=== PATIENT | male | born 1950 | race Caucasian/White ===

== ENCOUNTER 2017-05-25 10:48 | Inpatient (IN) | payer OTHER, MEDICARE ==
[2017-05-25] VITALS (10 sets, daily range): BP systolic 95–114; BP diastolic 57–68; PULSE 87–124; RESP 25–28; TEMP 97.8–99.3; O2SAT 92–99
[~2017-05-25] VITALS: Ht 180.3 cm; Wt 113.8 kg
[2017-05-25] MEDS ORDERED: ONDANSETRON HCL 4 MG/2 ML VIAL ONE (10:56)
[2017-05-25] MEDS ORDERED: MORPHINE SULFATE 8 MG/ML INJ ONE (10:56)
[2017-05-25] MEDS ORDERED: DIPHTH/TETANUS/ACEL PERTUSSIS (BOOSTER) 0.5 ML VIAL/PFS IM ONE (11:07)
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
[2017-05-25 11:19] LABS: I-STAT POTASSIUM 4.4 MMOL/L (3.5-4.9)
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
[2017-05-25 11:21] LABS: AUTOMATED NEUTROPHIL # 8.9 TH/MM3 (1.8-7.7); BASOPHIL # 0.1 TH/MM3 (0-0.2); BASOPHIL % 0.5 % (0.0-2.0); EOSINOPHIL # 0.3 TH/MM3 (0-0.4); EOSINOPHIL % 2.7 % (0.0-4.0); HEMATOCRIT 40.1 % (39.0-51.0); HEMO FLAGS DIFF FINAL; LYMPH % 17.2 % (9.0-44.0); LYMPHOCYTE # 2.1 TH/MM3 (1.0-4.8); MEAN CELL VOLUME 82.4 FL (80.0-100.0); MEAN CORPUSCULAR HEMOGLOBIN 27.1 PG (27.0-34.0); MEAN CORPUSCULAR HGB CONC 32.9 % (32.0-36.0); MONO % 6.3 % (0.0-8.0); NEUT % 73.3 % (16.0-70.0); PLATELET COUNT 246 TH/MM3 (150-450); RED BLOOD COUNT 4.86 MIL/MM3 (4.50-5.90); RED CELL DISTRIBUTION WIDTH 13.6 % (11.6-17.2); WHITE BLOOD COUNT 12.2 TH/MM3 (4.0-11.0)
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
[2017-05-25 11:30] LABS: APTT (PATIENT) 21.8 SEC (24.3-30.1); PROTHROMBIN TIME - PATIENT 11.2 SEC (9.8-11.6)
[2017-05-25] MEDS ORDERED: IOHEXOL 350 MG/ML 10 ML VIAL (for RAD DIAG) IVCONTRAST ONE (11:50)
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
[2017-05-25] MEDS ORDERED: SODIUM CHLORIDE 0.9% FLUSH 10 ML FLUSH IV FLUSH PRN ×2 (12:15→13:30)
[2017-05-25] MEDS ORDERED: Post-op Orders (for Pharmacy) MISC XX ONE (12:15)
[2017-05-25] MEDS ORDERED: ONDANSETRON HCL 4 MG/2 ML VIAL IV PUSH PRN (12:15)
[2017-05-25] MEDS ORDERED: NALOXONE HCL 0.4 MG/ML AMP IV PUSH PRN (12:15)
[2017-05-25] MEDS: SODIUM CHLOR 0.9% 1000 ML INJ 1,000 ML IV SCH ×2 (12:30→20:53)
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
[2017-05-25] MEDS: HYDROmorphone HCL PF 1 MG/ML VIAL IV PUSH PRN ×2 (13:23→18:06)
[2017-05-25] MEDS ORDERED: IOHEXOL 350 MG/ML 10 ML VIAL (for RAD DIAG) OTHER ONE (13:23)
[2017-05-25 13:30] LABS: BLOOD GAS BASE EXCESS -10.8 mmol/L (-2-2); BLOOD GAS CARBOXYHEMOGLOBIN 0.7 % (0-4); BLOOD GAS HCO3 14 mmol/L (22-26); BLOOD GAS O2 HGB SATURATION 97 % (90-100); BLOOD GAS OXYGEN CONTENT 17.8 Vol % (12.0-20.0); BLOOD GAS PCO2 31 mmHg (38-42); BLOOD GAS PO2 176 mmHg (61-120); BLOOD GAS TOTAL HGB 12.8 G/DL (12.0-16.0); CRITICAL VALUE YES; TEMP CORR TO 98.6
[2017-05-25] MEDS ORDERED: BISACODYL 10 MG SUPP RECTAL PRN (13:30)
[2017-05-25] MEDS ORDERED: CHLORHEXIDINE GLUCONATE 2 % 1 PACK (2 CLOTHS) TOP PRN (13:30)
[2017-05-25] MEDS ORDERED: SENNOSIDES 8.6 MG TAB PO PRN (13:30)
[2017-05-25] MEDS ORDERED: LACTULOSE SYRUP 20 GM/30 ML CUP PO PRN (13:30)
[2017-05-25] MEDS ORDERED: MISCELLANEOUS NURSING INFORMATION XX SCH (13:30)
[2017-05-25] MEDS ORDERED: MAGNESIUM HYDROXIDE SUSP 30 ML CUP PO PRN (13:30)
[2017-05-25 13:31] LABS: DRAW SITE RT RADIAL; FIO2 100 %; LITER FLOW 15 L/M; NUMBER OF ARTERIAL PUNCTURES 1; STAT NO; ULNAR PULSE PRESENT
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
[2017-05-25] MEDS ORDERED: NOREPINEPHRINE-DEXTROSE DRIP 250 ML IV ONE (14:18)
[2017-05-25] MEDS ORDERED: TERBUTALINE INJ 1 MG/ML AMP SQ PRN ×3 (14:30→15:15)
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
--- NOTE | 2017-05-25 15:02 | RADRPT ---
EXAM DATE/TIME: 05/25/2017 14:28 [facility] COMPARISON: CHEST SINGLE AP, May 25, 2017, 10:40. INDICATIONS : Evaluate for central line placement. MEDICAL HISTORY : None. SURGICAL HISTORY : None. ENCOUNTER: Subsequent ACUITY: 1 day PAIN SCORE: Non-responsive. LOCATION: chest FINDINGS: A single portable frontal view of the chest shows interval placement of a left subclavian dialysis ca theter. The tip is at the confluence of the innominate vein and brachycephalic vein. No pneumothorax. Heart is enlarged. Linear atelectasis within the left lung base. No effusions or infiltrates. CONCLUSION: Left subclavian dialysis catheter without pneumothorax. Jung Bhatia Jr., MD on May 25, 2017 at 15:00 Board Certified Radiologist. This report was verified electronically.
[2017-05-25 15:07] LABS: HEMATOCRIT 35.8 % (39.0-51.0); MEAN CELL VOLUME 85.3 FL (80.0-100.0); MEAN CORPUSCULAR HEMOGLOBIN 27.4 PG (27.0-34.0); MEAN CORPUSCULAR HGB CONC 32.1 % (32.0-36.0); PLATELET COUNT 198 TH/MM3 (150-450); RED BLOOD COUNT 4.19 MIL/MM3 (4.50-5.90); RED CELL DISTRIBUTION WIDTH 14.2 % (11.6-17.2); REVIEW FLAG FINAL; WHITE BLOOD COUNT 21.2 TH/MM3 (4.0-11.0)
[2017-05-25] MEDS ORDERED: LIDOCAINE HCL 1% 50 ML VIAL ONE (15:07)
[2017-05-25] MEDS ORDERED: NOREPINEPHRINE 16 MG/D5W 250 ML IV PRN ×2 (15:15)
[2017-05-25] MEDS ORDERED: PHENYLEPHRINE HCL 160 MG/D5W 484 ML ADMIX IV PRN ×2 (15:15)
[2017-05-25] MEDS ORDERED: EPINEPHrine 8 MG/D5W 250 ML IV PRN ×2 (15:15)
[2017-05-25] MEDS ORDERED: PHENYLEPHRINE INJ 40 MG in DEXTROSE 5% IN WATE 500 ML INJ 496 ML IV PRN ×2 (15:15)
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
[2017-05-25 15:36] LABS: BICARBONATE 20.2 MEQ/L (21.0-32.0); POTASSIUM 3.9 MEQ/L (3.5-5.1)
[2017-05-25 15:43] LABS: INTERNATIONAL NORMALIZED RATIO 1.3 RATIO
[2017-05-25] MEDS: RESP: ALBUTEROL 2.5 MG/IPRATROPIUM 0.5 MG NEB (SCH) INH ×2 (16:00→22:02)
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
[2017-05-25] MEDS: NOREPINEPHRINE INJ 4 MG in SODIUM CHLOR 0.9% 250 ML INJ 246 ML IV PRN ×3 (16:18→21:56)
[2017-05-25] MEDS ORDERED: ALBUMIN 5% INJ 500 ML IV ONE (16:30)
[2017-05-25] MEDS ORDERED: SODIUM CHLOR 0.9% 1000 ML INJ 2,000 ML IV ONE ×2 (17:00)
[2017-05-25] MEDS: ONDANSETRON HCL 4 MG/2 ML VIAL IV PUSH PRN (17:38)
[2017-05-25] MEDS: ARTIFICIAL TEARS OPTH SOLN 15 ML BTL EACH EYE SCH (18:40)
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
[2017-05-25] MEDS: DOCUSATE SODIUM 50 MG/SENNA 8.6 MG TAB PO SCH (19:57)
[2017-05-25] MEDS: oxyCODONE/ACETAMINOPHEN 5 MG/325 MG TAB PO PRN (19:58)
[2017-05-25] MEDS: ACETAMINOPHEN 1000 MG/100 ML 100 ML IV SCH (19:58)
[2017-05-25] MEDS: SODIUM CHLORIDE 0.9% FLUSH 10 ML FLUSH IV FLUSH SCH (19:59)
[2017-05-25] MEDS: METHOCARBAMOL 500 MG TAB PO SCH (20:08)
[2017-05-25 20:59] LABS: HEMATOCRIT 30.5 % (39.0-51.0); REVIEW FLAG FINAL
[2017-05-25] MEDS ORDERED: SODIUM CHLORIDE 0.9% FLUSH 10 ML FLUSH IV FLUSH SCH (21:00)
[2017-05-25] MEDS ORDERED: DOCUSATE SODIUM 100 MG CAP PO SCH (21:00)
[2017-05-25] MEDS ORDERED: FAMOTIDINE 20 MG/2 ML VIAL IV PUSH SCH (21:00)
[2017-05-25 22:51] LABS: BACTERIA, URINE RARE /hpf; BLOOD, URINE LARGE (NEG); COMMENT (UR) CULTURE INDICATED; CULTURE IF INDICATED CULTURE INDICATED; GLUCOSE,URINE NEG (NEG); GRANULAR CAST, URINE 21 /lpf; KETONE, URINE NEG (NEG); MUCUS URINE FEW /lpf (OCC); NITRITE,URINE NEG (NEG); PH, URINE 5.5 (5.0-8.5); SQUAMOUS EPITHELIAL CELL URINE 2 /hpf (0-5)
[2017-05-25 22:52] LABS: URINE COLOR LIGHT-RED (YELLW/STRAW)
[2017-05-26] VITALS (24 sets, daily range): BP systolic 105–166; BP diastolic 48–70; PULSE 96–112; RESP 16–25; TEMP 98–100.2; O2SAT 93–97
[2017-05-26] MEDS: oxyCODONE/ACETAMINOPHEN 5 MG/325 MG TAB PO PRN ×3 (00:02→16:03)
[2017-05-26] MEDS: ACETAMINOPHEN 1000 MG/100 ML 100 ML IV SCH ×2 (00:02→06:44)
[2017-05-26] MEDS: HYDROmorphone HCL PF 1 MG/ML VIAL IV PUSH PRN ×3 (00:59→10:38)
[2017-05-26] MEDS: CHLORHEXIDINE GLUCONATE 2 % 1 PACK (2 CLOTHS) TOP SCH (04:00)
[2017-05-26] MEDS: RESP: ALBUTEROL 2.5 MG/IPRATROPIUM 0.5 MG NEB (SCH) INH ×4 (04:13→21:17)
[2017-05-26] MEDS: METHOCARBAMOL 500 MG TAB PO SCH ×3 (04:21→20:16)
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
[2017-05-26 05:48] LABS: AUTOMATED NEUTROPHIL # 11.4 TH/MM3 (1.8-7.7); BASOPHIL % 0.3 % (0.0-2.0); HEMATOCRIT 25.4 % (39.0-51.0); LYMPH % 11.2 % (9.0-44.0); LYMPHOCYTE # 1.6 TH/MM3 (1.0-4.8); MEAN CELL VOLUME 83.1 FL (80.0-100.0); MEAN CORPUSCULAR HGB CONC 33.7 % (32.0-36.0); MONO % 9.9 % (0.0-8.0); NEUT % 78.6 % (16.0-70.0); PLATELET COUNT 133 TH/MM3 (150-450); RED BLOOD COUNT 3.06 MIL/MM3 (4.50-5.90); RED CELL DISTRIBUTION WIDTH 14.5 % (11.6-17.2); WHITE BLOOD COUNT 14.4 TH/MM3 (4.0-11.0)
[2017-05-26 06:07] LABS: HEMO FLAGS AUTO DIFF
[2017-05-26 06:16] LABS: BICARBONATE 16.8 MEQ/L (21.0-32.0); POTASSIUM 5.2 MEQ/L (3.5-5.1)
[2017-05-26 06:30] LABS: CALCIUM-PROTEIN CORRECTED 7.9 MG/DL (8.5-10.1)
[2017-05-26 06:44] LABS: BANDS 8 % (0-6); NEUTROPHIL # MANUAL DIFF 12.7 TH/MM3 (1.8-7.7); POLYS (SEG NEUTROPHILS) 80 % (16-70); WBC DIFF SAMPLE 100
[2017-05-26] MEDS: ONDANSETRON HCL 4 MG/2 ML VIAL IV PUSH PRN ×2 (06:44→20:17)
[2017-05-26 06:45] LABS: KERATOCYTES 1+ (NORMAL); PLATELET ESTIMATE SMEAR LOW (NORMAL); PLATELET MORPHOLOGY NORMAL (NORMAL); SCAN/DIFF FINAL DIFF MANUAL
[2017-05-26 07:00] LABS: MAGNESIUM 1.7 MG/DL (1.5-2.5)
[2017-05-26] MEDS: FAMOTIDINE 20 MG/2 ML VIAL IV PUSH SCH ×2 (09:00→20:17)
[2017-05-26] MEDS: ARTIFICIAL TEARS OPTH SOLN 15 ML BTL EACH EYE SCH ×2 (09:00→13:00)
[2017-05-26] MEDS: SODIUM CHLORIDE 0.9% FLUSH 10 ML FLUSH IV FLUSH SCH ×2 (09:00→21:00)
[2017-05-26] MEDS: DOCUSATE SODIUM 50 MG/SENNA 8.6 MG TAB PO SCH ×2 (09:00→20:17)
[2017-05-26] MEDS ORDERED: PROMETHAZINE INJ 25 MG/ML VIAL IV-CENTRAL PRN (10:15)
[2017-05-26] MEDS ORDERED: SODIUM CHLOR 0.9% 250 ML INJ 250 ML IV ONE (10:15)
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
[2017-05-26] MEDS ORDERED: MAGNESIUM SULFATE 1 GM PREMIX 100 ML IV ONE (11:00)
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
--- NOTE | 2017-05-26 14:07 | OTSOAPIP ---
[facility] REQUESTS TO HOLD PATIENT IS SCHEDULED FOR ROTO BED TOMORROW. PATIENT ALSO BEING SCHEDULED FOR OPEN REDUCTION INTERNAL FIXATION PUBIC SYMPHYSEAL DIASTASIS AND SURGICAL DECOMPRESSION AND FUSION LUMBAR SPINE. Therapist: Shaina Tellez OTR/L Signature on file
[2017-05-26] MEDS: SODIUM CHLOR 0.9% 1000 ML INJ 1,000 ML IV SCH (18:08)
[2017-05-27] VITALS (16 sets, daily range): BP systolic 138–170; BP diastolic 57–72; PULSE 81–101; RESP 18–26; TEMP 97.4–100; O2SAT 91–98
[2017-05-27] MEDS: RESP: ALBUTEROL 2.5 MG/IPRATROPIUM 0.5 MG NEB (SCH) INH ×2 (03:40→10:00)
[2017-05-27] MEDS ORDERED: ASPI81CH CHEW (03:53)
[2017-05-27] MEDS: CHLORHEXIDINE GLUCONATE 2 % 1 PACK (2 CLOTHS) TOP SCH ×2 (04:00→23:14)
[2017-05-27 05:01] LABS: AUTOMATED NEUTROPHIL # 6.5 TH/MM3 (1.8-7.7); BASOPHIL % 0.2 % (0.0-2.0); EOSINOPHIL % 0.4 % (0.0-4.0); HEMATOCRIT 24.6 % (39.0-51.0); LYMPHOCYTE # 1.2 TH/MM3 (1.0-4.8); MEAN CELL VOLUME 83.5 FL (80.0-100.0); MEAN CORPUSCULAR HEMOGLOBIN 28.9 PG (27.0-34.0); MEAN CORPUSCULAR HGB CONC 34.6 % (32.0-36.0); MONO % 8.3 % (0.0-8.0); NEUT % 77.1 % (16.0-70.0); PLATELET COUNT 83 TH/MM3 (150-450); RED BLOOD COUNT 2.95 MIL/MM3 (4.50-5.90); RED CELL DISTRIBUTION WIDTH 14.5 % (11.6-17.2); WHITE BLOOD COUNT 8.4 TH/MM3 (4.0-11.0)
[2017-05-27 05:03] LABS: HEMO FLAGS AUTO DIFF
[2017-05-27 05:32] LABS: BICARBONATE 22.3 MEQ/L (21.0-32.0); CALCIUM-PROTEIN CORRECTED 8.5 MG/DL (8.5-10.1); POTASSIUM 3.9 MEQ/L (3.5-5.1); TOTAL BILIRUBIN ADULT 0.9 MG/DL (0.2-1.0)
--- NOTE | 2017-05-27 05:43 | RADRPT ---
EXAM DATE/TIME: 05/27/2017 04:48 [facility] COMPARISON: CHEST SINGLE AP, May 26, 2017, 4:58. INDICATIONS : Short of breath. MEDICAL HISTORY : None. SURGICAL HISTORY : None. ENCOUNTER: Subsequent ACUITY: 2 days PAIN SCORE: 0/10 LOCATION: Bilateral chest FINDINGS: A single view of the chest demonstrates increase in pulmonary vascularity with some interstitial faustino a. Tiny pleural effusions. Left subclavian central line stable position. Left-sided rib fractures are noted. The cardiomediastinal contours are unremarkable. CONCLUSION: 1. Interstitial edema. 2. Tiny pleural effusions. Mikey Miles MD on May 27, 2017 at 5:40 Board Certified Radiologist. This report was verified electronically.
[2017-05-27] MEDS: MORPHINE SULFATE 2 MG/ML INJ IV PUSH PRN ×4 (05:49→16:20)
[2017-05-27] MEDS: METHOCARBAMOL 500 MG TAB PO SCH ×3 (06:00→23:14)
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
[2017-05-27 07:40] LABS: PLATELET ESTIMATE SMEAR LOW (NORMAL); PLATELET MORPHOLOGY NORMAL (NORMAL); SCAN/DIFF AUTO DIFF CONFIRMED
--- NOTE | 2017-05-27 07:55 | ECHRPT ---
Indication: MULTIPLE TRAUMA/ HX HEART DISEASE CONCLUSIONS Normal left ventricular size. Wall thickness is normal. The left ventricular systolic function is low normal with an estimated ejection fraction in the rang e of 50- 55%. There is a small pericardial effusion present. BP: / HR: Rhythm: MEASUREMENTS (Male / Female) Normal Values Technical Quality:Fair 2D ECHO LV Diastolic Diameter PLAX 4.5 cm 4.2 - 5.9 / 3.9 - 5.3 cm LV Systolic Diameter PLAX 3.5 cm IVS Diastolic Thickness 1.0 cm 0.6 - 1.0 / 0.6 - 0.9 cm LVPW Diastolic Thickness 0.8 cm 0.6 - 1.0 / 0.6 - 0.9 cm LV Relative Wall Thickness 0.4 RV Internal Dim ED PLAX 2.2 cm DOPPLER Mitral E Point Velocity 66.0 cm/s Mitral A Point Velocity 80.2 cm/s Mitral E to A Ratio 0.8 TR Peak Velocity 200.3 cm/s TR Peak Gradient 16.1 mmHg FINDINGS LEFT VENTRICLE Normal left ventricular size. Wall thickness is normal. The left ventricular systolic function is low normal with an estimated ejection fraction in the rang e of 50- 55%. RIGHT VENTRICLE Normal right ventricular size and systolic function. LEFT ATRIUM The left atrial size is normal. RIGHT ATRIUM The right atrial size is normal. ATRIAL SEPTUM Normal atrial septal thickness without atrial level shunting by limited color doppler interrogation. AORTA The aortic root and proximal ascending aorta are normal in size on limited imaging. MITRAL VALVE Structurally normal mitral valve. No mitral valve stenosis or regurgitation. AORTIC VALVE Trileaflet aortic valve. No aortic valve stenosis or regurgitation. TRICUSPID VALVE The tricuspid valve is not well visualized. PULMONARY VALVE The pulmonary valve is not well visualized. VESSELS The inferior vena cava is normal in size. PERICARDIUM There is a small pericardial effusion present. Db Marin MD (Electronically Signed) Final Date:27 May 2017 07:54
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
[2017-05-27] MEDS: SODIUM CHLORIDE 0.9% FLUSH 10 ML FLUSH IV FLUSH SCH ×2 (09:00→20:16)
[2017-05-27] MEDS: POLYETHYLENE GLYCOL 17 GM PKG PO SCH (09:00)
[2017-05-27] MEDS: LACTULOSE SYRUP 20 GM/30 ML CUP PO SCH (09:00)
[2017-05-27] MEDS: oxyCODONE/ACETAMINOPHEN 5 MG/325 MG TAB PO PRN (09:38)
[2017-05-27] MEDS: ONDANSETRON HCL 4 MG/2 ML VIAL IV PUSH PRN (09:39)
[2017-05-27] MEDS: METOPROLOL TARTRATE 5 MG/5 ML VIAL IV PUSH SCH ×3 (10:19→23:14)
[2017-05-27] MEDS: DOCUSATE SODIUM 50 MG/SENNA 8.6 MG TAB PO SCH ×2 (10:20→23:13)
[2017-05-27] MEDS: FAMOTIDINE 20 MG TAB PO SCH ×2 (10:20→23:13)
[2017-05-27] MEDS: LISINOPRIL 20 MG TAB PO SCH (10:20)
[2017-05-27] MEDS ORDERED: fentaNYL 50 MCG/HR PATCH T-DERMAL SCH (11:00)
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
[2017-05-27] MEDS: SODIUM CHLOR 0.9% 1000 ML INJ 1,000 ML IV SCH (16:20)
[2017-05-28] VITALS (9 sets, daily range): BP systolic 115–132; BP diastolic 53–55; PULSE 80–96; RESP 16–27; TEMP 98.4–99.9; O2SAT 95–100
[2017-05-28] MEDS: METOPROLOL TARTRATE 5 MG/5 ML VIAL IV PUSH SCH ×4 (03:16→20:35)
[2017-05-28] MEDS: METHOCARBAMOL 500 MG TAB PO SCH ×3 (03:16→20:49)
[2017-05-28] MEDS: MORPHINE SULFATE 2 MG/ML INJ IV PUSH PRN (03:17)
[2017-05-28] MEDS: SODIUM CHLOR 0.9% 1000 ML INJ 1,000 ML IV SCH ×3 (03:19→18:42)
[2017-05-28] MEDS: RESP: ALBUTEROL 2.5 MG/IPRATROPIUM 0.5 MG NEB (SCH) INH ×3 (03:51→21:05)
[2017-05-28 05:50] LABS: AUTOMATED NEUTROPHIL # 6.5 TH/MM3 (1.8-7.7); BASOPHIL % 0.3 % (0.0-2.0); EOSINOPHIL # 0.1 TH/MM3 (0-0.4); EOSINOPHIL % 1.4 % (0.0-4.0); HEMATOCRIT 23.1 % (39.0-51.0); LYMPHOCYTE # 1.1 TH/MM3 (1.0-4.8); MEAN CORPUSCULAR HEMOGLOBIN 29.2 PG (27.0-34.0); MEAN CORPUSCULAR HGB CONC 34.8 % (32.0-36.0); MONO % 9.2 % (0.0-8.0); NEUT % 76.1 % (16.0-70.0); PLATELET COUNT 83 TH/MM3 (150-450); RED BLOOD COUNT 2.75 MIL/MM3 (4.50-5.90); RED CELL DISTRIBUTION WIDTH 14.8 % (11.6-17.2); WHITE BLOOD COUNT 8.5 TH/MM3 (4.0-11.0)
[2017-05-28 05:54] LABS: HEMO FLAGS AUTO DIFF
[2017-05-28 06:05] LABS: BICARBONATE 24.7 MEQ/L (21.0-32.0); CALCIUM-PROTEIN CORRECTED 8.2 MG/DL (8.5-10.1); POTASSIUM 3.9 MEQ/L (3.5-5.1); TOTAL BILIRUBIN ADULT 1.2 MG/DL (0.2-1.0)
--- NOTE | 2017-05-28 06:40 | RADRPT ---
EXAM DATE/TIME: 05/28/2017 06:19 [facility] COMPARISON: CHEST SINGLE AP, May 27, 2017, 4:48. INDICATIONS : Short of breath MEDICAL HISTORY : None. SURGICAL HISTORY : None. ENCOUNTER: Subsequent ACUITY: 3 days PAIN SCORE: Non-responsive. LOCATION: Bilateral chest FINDINGS: A single view of the chest demonstrates diminished lung volumes. Cardiomegaly with increased pulmonar y vascularity. Tiny pleural effusions. Osseous structures are intact. CONCLUSION: 1. Cardiomegaly with increased pulmonary vascularity. 2. Tiny pleural effusions. Mikey Miles MD on May 28, 2017 at 6:38 Board Certified Radiologist. This report was verified electronically.
[2017-05-28] MEDS ORDERED: GELFOAM SIZE 100 ONE (08:20)
[2017-05-28] MEDS ORDERED: THROMBIN (TOPICAL) 5,000 UNIT VIAL ONE ×2 (08:20→14:42)
[2017-05-28] MEDS ORDERED: LIDOCAINE 2%/EPINEPHrine PF 1:200,000 20ML SDV ONE (08:21)
[2017-05-28] MEDS ORDERED: GENTAMICIN SULFATE 80 MG/2 ML VIAL ONE ×2 (08:21→08:36)
[2017-05-28] MEDS ORDERED: ceFAZolin 2 GM PREMIX 50 ML ONE (08:26)
[2017-05-28] MEDS ORDERED: HEPARIN SODIUM - SQ 10,000 UNITS/ML VIAL ONE (08:26)
[2017-05-28] MEDS ORDERED: VANCOMYCIN HCL 1000 MG VIAL ONE ×2 (08:26→09:17)
[2017-05-28 08:30] LABS: BANDS 16 % (0-6); NEUTROPHIL # MANUAL DIFF 6.9 TH/MM3 (1.8-7.7); POLYS (SEG NEUTROPHILS) 65 % (16-70); WBC DIFF SAMPLE 100
[2017-05-28] MEDS ORDERED: SODIUM CHLORIDE 0.9% IV SCH (08:30)
[2017-05-28] MEDS ORDERED: TRANEXAMIC ACID IV SCH (08:30)
[2017-05-28 08:36] LABS: PLATELET ESTIMATE SMEAR LOW (NORMAL); PLATELET MORPHOLOGY NORMAL (NORMAL); SCAN/DIFF FINAL DIFF MANUAL
[2017-05-28] MEDS ORDERED: NOREPINEPHRINE 4 MG/4 ML AMP ONE (08:49)
[2017-05-28] MEDS ORDERED: KETAMINE HCL 500 MG/5 ML VIAL ONE (08:52)
[2017-05-28] MEDS ORDERED: fentaNYL CITRATE 1000 MCG/20 ML VIAL ONE (08:52)
[2017-05-28] MEDS: POLYETHYLENE GLYCOL 17 GM PKG PO SCH (09:00)
[2017-05-28] MEDS: LISINOPRIL 20 MG TAB PO SCH (09:00)
[2017-05-28] MEDS: DOCUSATE SODIUM 50 MG/SENNA 8.6 MG TAB PO SCH ×2 (09:00→20:48)
[2017-05-28] MEDS: FAMOTIDINE 20 MG TAB PO SCH ×2 (09:00→20:48)
[2017-05-28] MEDS: LACTULOSE SYRUP 20 GM/30 ML CUP PO SCH (09:00)
[2017-05-28] MEDS ORDERED: METOPROLOL TARTRATE 25 MG TAB PO PRN (09:30)
[2017-05-28] MEDS ORDERED: INSULIN HUMAN REGULAR 1,000 UNITS/10 ML VIAL SQ PRN (09:30)
[2017-05-28] MEDS ORDERED: POVIDONE IODINE 5% (ANTISEPSIS KIT) 4 APPLICATIONS EACH NARE PRN (09:30)
[2017-05-28] MEDS ORDERED: SODIUM CHLORID 0.9% 500 ML IV PRN (09:30)
[2017-05-28] MEDS ORDERED: CHLORHEXIDINE GLUCONATE 2 % 1 PACK (2 CLOTHS) TOPICAL PRN (09:30)
[2017-05-28] MEDS ORDERED: LACTATED RINGER'S 1000 ML IV PRN (09:30)
[2017-05-28] MEDS ORDERED: ARTIFICIAL TEARS OPTH OINT 3.5 APPLIC/3.5 GM TUBO ONE (09:39)
[2017-05-28] MEDS ORDERED: PROPOFOL 500 MG/50 ML INJ 100 ML ONE (09:39)
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
--- NOTE | 2017-05-28 10:58 | RADRPT ---
EXAM DATE/TIME: 05/28/2017 10:02 [facility] COMPARISON: No previous studies available for comparison. INDICATIONS : Post-op ORIF pubic symphisis. MEDICAL HISTORY : None. SURGICAL HISTORY : None. ENCOUNTER: Subsequent ACUITY: 4 - 6 days PAIN SCORE: Non-responsive. LOCATION: pelvis FINDINGS: 5 images recorded digitally in the operating room using C-arm during placement of a plate in the left and right pubic bone over the symphysis. CONCLUSION: Intraoperative images. Jung Paulson MD on May 28, 2017 at 10:56 Board Certified Radiologist. This report was verified electronically.
[2017-05-28 11:55] LABS: BLOOD GAS BASE EXCESS -2.2 mmol/L (-2-2); BLOOD GAS CARBOXYHEMOGLOBIN 2.4 % (0-4); BLOOD GAS HCO3 22 mmol/L (22-26); BLOOD GAS METHEMOGLOBIN 1.2 % (0-2); BLOOD GAS O2 HGB SATURATION 96 % (90-100); BLOOD GAS OXYGEN CONTENT 11.1 Vol % (12.0-20.0); BLOOD GAS PCO2 41 mmHg (38-42); BLOOD GAS PO2 170 mmHg (61-120); BLOOD GAS TOTAL HGB 7.9 G/DL (12.0-16.0); TEMP CORR TO 98.6
[2017-05-28 11:57] LABS: CRITICAL VALUE NO; DRAW SITE ART LINE; FIO2 51 %; OXYGEN DEVICE VENTILATOR; STAT YES
[2017-05-28 12:16] LABS: HEMATOCRIT 23.6 % (39.0-51.0)
[2017-05-28 12:19] LABS: REVIEW FLAG FINAL
[2017-05-28] MEDS ORDERED: ceFAZolin INJ 1,000 MG VIAL IV ONE (13:32)
[2017-05-28 13:42] LABS: BLOOD GAS CARBOXYHEMOGLOBIN 2.4 % (0-4); BLOOD GAS HCO3 23 mmol/L (22-26); BLOOD GAS METHEMOGLOBIN 0.9 % (0-2); BLOOD GAS O2 HGB SATURATION 96 % (90-100); BLOOD GAS OXYGEN CONTENT 13.1 Vol % (12.0-20.0); BLOOD GAS PCO2 38 mmHg (38-42); BLOOD GAS PO2 163 mmHg (61-120); BLOOD GAS TOTAL HGB 9.4 G/DL (12.0-16.0); TEMP CORR TO 98.6
[2017-05-28 13:44] LABS: CRITICAL VALUE NO; OXYGEN DEVICE VENTILATOR
[2017-05-28 13:45] LABS: DRAW SITE ART LINE; STAT YES
[2017-05-28] MEDS ORDERED: PROPOFOL 500 MG/50 ML INJ 50 ML ONE ×2 (14:49→14:50)
[2017-05-28] MEDS: ceFAZolin 2 GM PREMIX 50 ML IV SCH ×2 (15:00→23:02)
--- NOTE | 2017-05-28 15:00 | EKG ---
Date Performed: 05/27/2017 Time Performed: 15:10:14 PTAGE: 66 years EKG: Sinus rhythm . Leftward axis Inferior infarct - age undetermined Abnormal ECG NO PREVIOUS TRACING DOCTOR: Andrade Webster Interpretating Date/Time 05/28/2017 14:56:06
[2017-05-28 15:17] LABS: BLOOD GAS BASE EXCESS -0.2 mmol/L (-2-2); BLOOD GAS CARBOXYHEMOGLOBIN 2.4 % (0-4); BLOOD GAS HCO3 25 mmol/L (22-26); BLOOD GAS O2 HGB SATURATION 96 % (90-100); BLOOD GAS OXYGEN CONTENT 12.7 Vol % (12.0-20.0); BLOOD GAS PCO2 44 mmHg (38-42); BLOOD GAS PO2 178 mmHg (61-120); BLOOD GAS TOTAL HGB 9.1 G/DL (12.0-16.0); CRITICAL VALUE NO; DRAW SITE ART LINE; OXYGEN DEVICE VENTILATOR; STAT YES; TEMP CORR TO 98.6
[2017-05-28 15:37] LABS: HEMATOCRIT 22.8 % (39.0-51.0); MEAN CELL VOLUME 84.5 FL (80.0-100.0); MEAN CORPUSCULAR HEMOGLOBIN 30.2 PG (27.0-34.0); MEAN CORPUSCULAR HGB CONC 35.8 % (32.0-36.0); PLATELET COUNT 93 TH/MM3 (150-450); RED CELL DISTRIBUTION WIDTH 14.3 % (11.6-17.2)
[2017-05-28 15:44] LABS: REVIEW FLAG FINAL
[2017-05-28] MEDS ORDERED: ceFAZolin 1,000 MG/NS 100 ML IV ONE ×2 (15:45)
[2017-05-28 15:46] LABS: APTT (PATIENT) 32.7 SEC (24.3-30.1); INTERNATIONAL NORMALIZED RATIO 1.3 RATIO
--- NOTE | 2017-05-28 16:52 | OTSOAPIP ---
TIME SESSION COMPLETED: AM TREATMENT TIME: 0 MINS. CHART REVIEWED. ATTEMPTED TO SEE FOR OT EVALUATION, HOWEVER PT HAVING SURGERY. WILL FOLLOW NEXT DAY. Therapist: TINO LAURA OT/[place] Signature on file
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
--- NOTE | 2017-05-28 18:12 | RADRPT ---
EXAM DATE/TIME: 05/28/2017 11:50 [facility] COMPARISON: CT LUMBAR SPINE W/O CONTRAST, May 25, 2017, 11:33. CT THORACIC SPINE W/O CONTRAST, May 25 017, 11:33. INDICATIONS : Lumbar fusion. MEDICAL HISTORY : None. SURGICAL HISTORY : None. ENCOUNTER: Initial ACUITY: 1 day PAIN SCORE: Non-responsive. LOCATION: lumbar FINDINGS: Two view examination was performed. Targeted intraoperative OEC view of the mid lumbar spine bilatera l transpedicular fixation at 3 sequential levels, presumably L1-L3 based on the prior CT scan of the lumbar spine showing a severe burst type fracture at L2. Hardware all appears to be intact with again , compression burst type fracture at what is assumed to be the L2 vertebral body. CONCLUSION: 3 level bilateral transpedicular fixation presumably from L1-L3 securing an L2 compression burst type fracture. Gomez Lo MD on May 28, 2017 at 18:08 Board Certified Radiologist. This report was verified electronically.
[2017-05-28] MEDS ORDERED: PROPOFOL 200 MG/20 ML AMP ONE (18:19)
[2017-05-28] MEDS ORDERED: LABETALOL HCL 100 MG/20 ML VIAL IV PUSH PRN (18:30)
[2017-05-28] MEDS: PROPOFOL 1000 MG/100 ML INJ 100 ML IV PRN ×2 (18:30→21:59)
[2017-05-28] MEDS ORDERED: fentaNYL DRIP 250 ML IV PRN (18:30)
[2017-05-28] MEDS ORDERED: hydrALAZINE HCL 20 MG/ML VIAL IV PUSH PRN (18:30)
--- NOTE | 2017-05-28 19:12 | RADRPT ---
EXAM DATE/TIME: 05/28/2017 19:38 [facility] COMPARISON: CHEST SINGLE AP, May 28, 2017, 6:19. INDICATIONS : ET tube and OG tube placement. MEDICAL HISTORY : None. SURGICAL HISTORY : None. ENCOUNTER: Subsequent ACUITY: 3 days PAIN SCORE: Non-responsive. LOCATION: Bilateral chest FINDINGS: NG tube is present with tip in the stomach. ET tube is present with tip overlapping approximately 3 c m above the angie. Left subclavian line is present with tip overlapping the expected region of the S VC. Left basilar opacity is present may be due to a combination of consolidation and or pleural effus ion. There is mild haziness to the lungs most of the pulmonary edema. CONCLUSION: Left basilar opacity is present may be due to a combination of consolidation and or pleural effusion and probable mild pulmonary edema. Rima Padron MD on May 28, 2017 at 19:10 Board Certified Radiologist. This report was verified electronically.
[2017-05-28] MEDS: CHLORHEXIDINE 0.12% (ORAL KIT) 15 ML CUP MT SCH (20:34)
[2017-05-28] MEDS: SODIUM CHLORIDE 0.9% FLUSH 10 ML FLUSH IV FLUSH SCH (20:34)
--- NOTE | 2017-05-28 20:40 | PD.OP ---
Operative Report Date of Surgery: May 28, 2017 Preoperative Diagnosis: (1) Unstable burst fracture of lumbar vertebra L2 burst fracture, lamina fracture Right L3 radiculopathy with sensory motor deficits Postoperative Diagnosis: (1) Unstable burst fracture of lumbar vertebra L2 burst fracture, lamina fracture Right L3 radiculopathy with sensory motor deficits Procedure: 1. L1-2 decompressive semi-hemilaminectomy, 2. Intraoperative Reduction L2 burst fracture 3. L1-3 posterior fusion with autograft bone and demineralized bone matrix 4. L1-3 posterior spinal instrumentation with pedicle screw fixation Anesthesia: Gen. Surgeon: Latrell Steiner Watch Assembly Instructor(s): Shira Rosenberg Operation and Findings: Findings: Fracture and displacement of the right L2 lamina with severe impingement on the right L3 nerve root with partially severed nerve. Positive dural tear with CSF leakage ventral lateral right L2 level thecal sac. Severely displaced left greater than right L2 vertebral body with ventral thecal sac compression. Fractured right L3 transverse process and lateral pedicle Procedure in detail: The procedure was performed following the initial orthopedic procedure in the same room, which will be dictated separately. Fernandez catheter, MARTINA hose and sequential compression devices in place Lines were established per Anesthesia Appropriate timeout procedure was performed with all personnel present and in agreement Leads for intraoperative neuro monitoring were placed and a baseline study obtained With the undersigned maintaining control of the head and neck, the patient was log rolled into prone position on the concentric [place] table and all extremities appropriately padded. The head was placed in the prone-view headrest. The C-arm was used to confirm proper positioning of the spine. The thoracic and lumbar region was shaved and prepped and draped in a sterile fashion The proper spine levels for the procedure were determined using the AP and lateral C-arm imaging The incisions for the percutaneous screws were made at the L1, L2, and L3 levels , 4.5 cm on each side lateral to the midline at a distance determined by the preoperative imaging studies as well as intraoperative AP and lateral C-arm monitoring. At the L1, L2, and L3 levels bilaterally and sequentially, the Jamshidi needles were placed through the pedicles into the vertebral body utilizing the AP lateral C-arm imaging , and the guidewires placed through each Jamshidi needle. The Jamshidi needle and guidewire placement was checked with intraoperative AP and lateral C-arm imaging and felt to be satisfactory. The wires were temporarily clipped towards the side of the operative field. The next incision was made at the midline L1-2 level and carried sharply down to the spinous processes. The Bovie and Block elevator was used for subperiosteal elevation of paraspinous musculature and fascia away from the lamina and spinous process of L1 and L2 on each side. The deep self-retaining retractor was placed The right L2 lamina was fractured and displaced anteriorly into the spinal canal , lying partially beneath the L1 lamina and facet. The TPS drill with the 5 mm bone bur was used to remove the inferior half of the bilateral L1 lamina and superior half of the bilateral L2 lamina. The fractured bone fragments were lifted away from the thecal sac and exiting right L2 and L3 nerve root. There was noted to be partial laceration of the exiting right L3 nerve root as well as a dural tear in the ventral lateral thecal sac at the right L2 level. A small amount of CSF leakage was encountered from the ventral lateral thecal sac which was stopped with temporary application of Gelfoam and thrombin. There was no neural tissue protruding through the dural tear. The spinal canal was decompressed on each side at the L1-2 level out to the level of the medial L2 pedicle. With gentle retraction of the thecal sac on each side, the retropulsed L2 vertebral body was encountered and was impacted away from the thecal sac and exiting nerve roots with the thin footplate bone impactors. The progress was monitored with the lateral C-arm imaging and direct visualization under the microscope. The long blunt nerve hook was used to carefully probe beneath the thecal sac to ensure that there was good decompression of the neural elements. Any bleeding along the epidural space was controlled with the bipolar forceps and the temporary application of Gelfoam and thrombin. Next attention was turned back to the instrumentation portion of the procedure. The Spine Wave Sniper pedicle screws on the MIS extension towers were then placed directly through the paraspinous muscle opening on each side at each level and advanced using AP and lateral C-arm imaging for monitoring. The 6.5 x 50 mm cannulated screws were used at the L1 and L3 levels, with the 5.5 x 45 mm screws utilized at the L2 level. The appropriate size Spine Wave MIS mora was placed percutaneously along the L1- 2-3 screws on each side and secured with the locking caps and the torque wrench and antitorque device. The extension towers were removed. The entire construct was assessed with AP and lateral C-arm imaging and felt to be satisfactory. The operative site was well irrigated with antibiotic irrigation. The TPS drill with a 5 mm bone bur was then used to decorticate the posterior lateral structures including the lateral lamina and set at the L1, L2, L3 levels. Own shavings were left in place for bone graft, to which was added retained lamina cancellus autograft and Optium demineralized bone matrix, which was packed firmly in place for the bilateral posterior lateral L1-L3 fusion.. A 10 Croatian fluted drain was left at the operative site on the left side and brought out through an incision in the lower thoracic region and secured to the skin with nylon suture and attached to sterile suction. The closure was performed with 0 Vicryl interrupted for the deep and superficial fascia with 3-0 Vicryl interrupted subcutaneous closure and 4-0 Vicryl running subcuticular closure of both the midline and paramedian incision sites. The patient was turned back into supine position on the intensive surgical care bed. Patient was taken to the intensive surgical care unit in stable condition. All counts were correct at the end the case Estimated blood loss was 1400 cc No specimen was sent to pathology Latrell Steiner MD May 28, 2017 20:40
[2017-05-29] VITALS (15 sets, daily range): BP systolic 109–148; BP diastolic 52–75; PULSE 81–104; RESP 12–19; TEMP 99–100.4; O2SAT 92–100
[2017-05-29] MEDS: RESP: ALBUTEROL 2.5 MG/3 ML NEB (PRN) INH (00:01)
[2017-05-29] MEDS: PROPOFOL 1000 MG/100 ML INJ 100 ML IV PRN ×3 (01:26→07:54)
[2017-05-29] MEDS: SODIUM CHLOR 0.9% 1000 ML INJ 1,000 ML IV SCH ×2 (02:37→11:49)
[2017-05-29] MEDS: RESP: ALBUTEROL 2.5 MG/IPRATROPIUM 0.5 MG NEB (SCH) INH ×3 (03:58→15:10)
[2017-05-29] MEDS: METOPROLOL TARTRATE 5 MG/5 ML VIAL IV PUSH SCH ×4 (04:00→23:20)
[2017-05-29] MEDS: CHLORHEXIDINE GLUCONATE 2 % 1 PACK (2 CLOTHS) TOP SCH ×2 (04:00→23:20)
[2017-05-29 05:01] LABS: BLOOD GAS BASE EXCESS 1.2 mmol/L (-2-2); BLOOD GAS CARBOXYHEMOGLOBIN 1.8 % (0-4); BLOOD GAS HCO3 25 mmol/L (22-26); BLOOD GAS O2 HGB SATURATION 97 % (90-100); BLOOD GAS OXYGEN CONTENT 13.3 Vol % (12.0-20.0); BLOOD GAS PCO2 41 mmHg (38-42); BLOOD GAS PO2 158 mmHg (61-120); BLOOD GAS TOTAL HGB 9.6 G/DL (12.0-16.0); CRITICAL VALUE NO; OXYGEN DEVICE VENTILATOR; TEMP CORR TO 98.6
[2017-05-29 05:02] LABS: DRAW SITE ART LINE; FIO2 50 %; STAT NO
[2017-05-29 05:39] LABS: AUTOMATED NEUTROPHIL # 7.3 TH/MM3 (1.8-7.7); BASOPHIL % 0.3 % (0.0-2.0); EOSINOPHIL # 0.2 TH/MM3 (0-0.4); EOSINOPHIL % 1.8 % (0.0-4.0); HEMATOCRIT 27.4 % (39.0-51.0); LYMPH % 12.8 % (9.0-44.0); LYMPHOCYTE # 1.3 TH/MM3 (1.0-4.8); MEAN CELL VOLUME 83.7 FL (80.0-100.0); MEAN CORPUSCULAR HEMOGLOBIN 30.5 PG (27.0-34.0); MONO % 12.6 % (0.0-8.0); NEUT % 72.5 % (16.0-70.0); PLATELET COUNT 84 TH/MM3 (150-450); RED BLOOD COUNT 3.28 MIL/MM3 (4.50-5.90); RED CELL DISTRIBUTION WIDTH 14.7 % (11.6-17.2); WHITE BLOOD COUNT 10.1 TH/MM3 (4.0-11.0)
[2017-05-29 05:56] LABS: MEAN CORPUSCULAR HGB CONC 36.4 % (32.0-36.0)
[2017-05-29 05:57] LABS: HEMO FLAGS AUTO DIFF
[2017-05-29 06:08] LABS: BICARBONATE 25.1 MEQ/L (21.0-32.0); CALCIUM-PROTEIN CORRECTED 7.6 MG/DL (8.5-10.1); POTASSIUM 3.9 MEQ/L (3.5-5.1)
--- NOTE | 2017-05-29 06:19 | RADRPT ---
EXAM DATE/TIME: 05/29/2017 06:00 [facility] COMPARISON: CHEST SINGLE AP, May 28, 2017, 19:38. INDICATIONS : Shortness of breath. MEDICAL HISTORY : None. SURGICAL HISTORY : None. ENCOUNTER: Subsequent ACUITY: 4 - 6 days PAIN SCORE: Non-responsive. LOCATION: Bilateral chest FINDINGS: A single view of the chest demonstrates bibasilar densities and probable small pleural effusions. End otracheal tube, nasogastric tube and left subclavian central line are stable in position. The cardio mediastinal contours are unremarkable. Osseous structures are intact. CONCLUSION: Bibasilar densities and probable small pleural effusions. Mikey Miles MD on May 29, 2017 at 6:16 Board Certified Radiologist. This report was verified electronically.
[2017-05-29] MEDS: METHOCARBAMOL 500 MG TAB PO SCH ×3 (06:26→23:19)
[2017-05-29] MEDS: ceFAZolin 2 GM PREMIX 50 ML IV SCH ×3 (06:44→23:20)
--- NOTE | 2017-05-29 07:01 | PD.ORT.PN ---
Subjective Subjective Remarks POD 1 s/p ORIF pubic symphysis and right SI screw intubated/sedated Objective Vitals Vital Signs Date Time Temp Pulse Resp B/P (MAP) Pulse Ox O2 Delivery O2 Flow Rate FiO2 05/29/17 06:00 90 05/29/17 04:59 100 40 05/29/17 04:00 99.0 82 19 110/52 (71) 99 05/29/17 04:00 81 05/29/17 03:58 99 50 05/29/17 02:00 83 05/29/17 01:36 98 50 05/29/17 00:00 89 05/29/17 00:00 99.5 89 19 109/53 (71) 98 05/28/17 22:00 87 05/28/17 21:06 100 60 05/28/17 20:00 99.9 83 16 115/53 (73) 97 05/28/17 20:00 Mechanical Ventilator 40 05/28/17 20:00 83 05/28/17 18:31 97 60 05/28/17 18:00 86 05/28/17 07:41 98.2 93 18 167/74 (105) 93 139/66 (90) 05/28/17 07:41 94 Nasal Cannula 4 I/O 05/28/17 05/28/17 05/28/17 05/29/17 05/29/17 05/29/17 07:00 15:00 23:00 07:00 15:00 23:00 Intake Total 420 ml 3034 ml 9715 ml Output Total 1200 ml 3475 ml 1380 ml Balance -780 ml 3034 ml 6240 ml -1380 ml Intake Oral 420 ml Packed Cells 1200 ml FFP 304 ml 215 ml Platelets 285 ml Blood Product IV Normal Saline Flush 1245 ml Other 9500 ml Output Urine Total 1200 ml 1700 ml 1075 ml Stool Total 0 ml Gastric Drainage Total 200 ml Drainage Total 75 ml 105 ml Estimated Blood Loss 1700 ml # Bowel Movements 0 Result Diagram: 05/29/17 0505 05/29/17 0505 Other Results Laboratory Tests Test 05/28/17 14:55 Prothromb Time International Ratio 1.3 RATIO Prothrombin Time 14.0 SEC (9.8-11.6) Imaging Last 24 hours Impressions Chest X-Ray 05/27/17 0600 Signed Impressions: Service Date/Time: Saturday, May 27, 2017 04:48 - CONCLUSION: 1. Interstitial edema. 2. Tiny pleural effusions. Mikey Miles MD Objective Remarks Pelvis: +cap refill bilaterally. nvi. dressings clean and dry. intact. Assessment & Plan Assessment and Plan 1) Pubic symphysis disruption with right SI joint widening s/p ORIF - POD 1 -NWB BLE -daily dressing changes POD 2 -plan for DC of drain POD 2 -CM for rehab placement -ortho surgeries complete Ashish Singleton May 29, 2017 07:01
[2017-05-29] MEDS: CHLORHEXIDINE 0.12% (ORAL KIT) 15 ML CUP MT SCH (07:54)
[2017-05-29] MEDS: LACTULOSE SYRUP 20 GM/30 ML CUP PO SCH (09:00)
[2017-05-29] MEDS: DOCUSATE SODIUM 50 MG/SENNA 8.6 MG TAB PO SCH ×2 (09:00→23:19)
[2017-05-29] MEDS: LISINOPRIL 20 MG TAB PO SCH (09:00)
[2017-05-29] MEDS: SODIUM CHLORIDE 0.9% FLUSH 10 ML FLUSH IV FLUSH SCH ×2 (09:00→23:21)
[2017-05-29] MEDS: POLYETHYLENE GLYCOL 17 GM PKG PO SCH (09:00)
[2017-05-29] MEDS: FAMOTIDINE 20 MG TAB PO SCH ×2 (09:00→23:19)
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
[2017-05-29 09:45] LABS: BANDS 21 % (0-6); CORRECTED NUCLEATED RBC 1 /100 WBC (0-0); EOSINOPHILS 6 % (0-4); NEUTROPHIL # MANUAL DIFF 7.3 TH/MM3 (1.8-7.7); POLYS (SEG NEUTROPHILS) 51 % (16-70); WBC DIFF SAMPLE 100
[2017-05-29 09:46] LABS: PLATELET ESTIMATE SMEAR LOW (NORMAL)
[2017-05-29 09:47] LABS: PLATELET MORPHOLOGY ENLARGED (NORMAL)
[2017-05-29 09:48] LABS: ACANTHOCYTES OCC (NORMAL); SCAN/DIFF FINAL DIFF MANUAL
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
[2017-05-29] MEDS: fentaNYL 50 MCG/HR PATCH T-DERMAL SCH (11:00)
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
[2017-05-29] MEDS: ENOXAPARIN SODIUM 40 MG/0.4 ML SYRINGE SQ SCH (16:00)
[2017-05-29] MEDS: BISACODYL 10 MG SUPP RECTAL SCH (16:00)
[2017-05-29] MEDS ORDERED: FUROSEMIDE 20 MG/2 ML VIAL IV ONE (16:15)
[2017-05-29] MEDS ORDERED: NOREPINEPHRINE 4 MG/D5W 250 ML IV PRN (16:30)
[2017-05-30] VITALS (13 sets, daily range): BP systolic 138–188; BP diastolic 65–83; PULSE 92–115; RESP 16–24; TEMP 98–100; O2SAT 91–97
[2017-05-30] MEDS: METOPROLOL TARTRATE 5 MG/5 ML VIAL IV PUSH SCH ×2 (04:32→08:34)
[2017-05-30] MEDS: ceFAZolin 2 GM PREMIX 50 ML IV SCH (05:40)
[2017-05-30] MEDS: METHOCARBAMOL 500 MG TAB PO SCH ×3 (05:40→22:58)
[2017-05-30] MEDS: RESP: ALBUTEROL 2.5 MG/3 ML NEB (PRN) INH ×3 (06:43→15:22)
[2017-05-30] MEDS ORDERED: BISACODYL 10 MG SUPP RECTAL ONE (08:00)
[2017-05-30] MEDS ORDERED: BISACODYL EC 5 MG TABEC PO ONE (08:00)
[2017-05-30] MEDS: LISINOPRIL 20 MG TAB PO SCH (08:34)
[2017-05-30] MEDS: ENOXAPARIN SODIUM 40 MG/0.4 ML SYRINGE SQ SCH (08:34)
[2017-05-30] MEDS: FAMOTIDINE 20 MG TAB PO SCH ×2 (08:34→19:57)
[2017-05-30] MEDS: MORPHINE SULFATE 4 MG/ML INJ IV PUSH PRN ×2 (08:35→12:37)
[2017-05-30] MEDS: POLYETHYLENE GLYCOL 17 GM PKG PO SCH (08:35)
[2017-05-30] MEDS: LACTULOSE SYRUP 20 GM/30 ML CUP PO SCH (08:35)
[2017-05-30] MEDS: DOCUSATE SODIUM 50 MG/SENNA 8.6 MG TAB PO SCH ×2 (08:36→19:56)
[2017-05-30] MEDS: BISACODYL 10 MG SUPP RECTAL SCH (08:36)
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
[2017-05-30] MEDS: SODIUM CHLORIDE 0.9% FLUSH 10 ML FLUSH IV FLUSH SCH ×2 (08:45→12:38)
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
--- NOTE | 2017-05-30 09:00 | PD.ORT.PN ---
Subjective Subjective Remarks stable Objective Vitals Vital Signs Date Time Temp Pulse Resp B/P (MAP) Pulse Ox O2 Delivery O2 Flow Rate FiO2 05/30/17 06:00 106 05/30/17 04:00 98.6 96 16 160/71 (100) 96 05/30/17 04:00 96 05/30/17 03:21 96 Nasal Cannula 5.00 05/30/17 02:00 92 05/30/17 00:00 100.0 94 17 138/65 (89) 91 05/30/17 00:00 94 05/29/17 23:43 92 Nasal Cannula 5.00 05/29/17 22:00 100 05/29/17 20:30 95 Nasal Cannula 5.00 05/29/17 20:00 100.4 104 15 139/73 (95) 96 05/29/17 20:00 104 05/29/17 19:00 96 Nasal Cannula 5.00 05/29/17 16:00 100 05/29/17 16:00 100.0 100 16 130/66 (87) 93 Arterial Line 05/29/17 13:28 95 Nasal Cannula 6.00 05/29/17 12:15 95 Venturi Mask 6.00 40 05/29/17 12:00 96 05/29/17 12:00 16 05/29/17 12:00 100.2 96 16 148/75 (99) 95 05/29/17 11:46 89 Venturi Mask 6.00 50 05/29/17 11:30 89 Nasal Cannula 6.00 05/29/17 10:20 97 Nasal Cannula 4.00 I/O 05/29/17 05/29/17 05/29/17 05/30/17 05/30/17 05/30/17 07:00 15:00 23:00 07:00 15:00 23:00 Intake Total 219 ml 2828 ml 2500 ml Output Total 1380 ml 2705 ml 4305 ml Balance -1380 ml 219 ml 123 ml -1805 ml Intake Oral 2160 ml 2400 ml IV Total 219 ml 668 ml 100 ml Output Urine Total 1075 ml 2650 ml 4275 ml Stool Total 0 ml Gastric Drainage Total 200 ml Drainage Total 105 ml 55 ml 30 ml # Bowel Movements 0 0 Result Diagram: 05/29/17 0505 05/29/17 0505 Imaging Last 24 hours Impressions Chest X-Ray 05/27/17 0600 Signed Impressions: Service Date/Time: Saturday, May 27, 2017 04:48 - CONCLUSION: 1. Interstitial edema. 2. Tiny pleural effusions. Mikey Miles MD Objective Remarks Pelvis: +cap refill bilaterally. nvi. dressings clean and dry. intact. drain 30 cc overnight Assessment & Plan Assessment and Plan 1) Pubic symphysis disruption with right SI joint widening s/p ORIF - POD 2 -NWB BLE -daily dressing changes -DC of drain -CM for rehab placement -ortho surgeries complete Chava Yanes Jr. May 30, 2017 09:00
[2017-05-30] MEDS ORDERED: REMOVE OLD DURAGESIC (FENTANYL) PATCH T-DERMAL SCH (11:00)
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
[2017-05-30 11:43] LABS: BASOPHIL % 0.2 % (0.0-2.0); EOSINOPHIL # 0.1 TH/MM3 (0-0.4); EOSINOPHIL % 1.6 % (0.0-4.0); HEMATOCRIT 34.1 % (39.0-51.0); LYMPH % 7.1 % (9.0-44.0); LYMPHOCYTE # 0.7 TH/MM3 (1.0-4.8); MEAN CELL VOLUME 86.3 FL (80.0-100.0); MEAN CORPUSCULAR HEMOGLOBIN 29.7 PG (27.0-34.0); MEAN CORPUSCULAR HGB CONC 34.4 % (32.0-36.0); MONO % 4.1 % (0.0-8.0); PLATELET COUNT 129 TH/MM3 (150-450); RED BLOOD COUNT 3.95 MIL/MM3 (4.50-5.90); RED CELL DISTRIBUTION WIDTH 14.8 % (11.6-17.2); WHITE BLOOD COUNT 9.2 TH/MM3 (4.0-11.0)
[2017-05-30 11:47] LABS: HEMO FLAGS AUTO DIFF
[2017-05-30 12:07] LABS: BICARBONATE 25.6 MEQ/L (21.0-32.0); CALCIUM-PROTEIN CORRECTED 8.2 MG/DL (8.5-10.1); POTASSIUM 3.9 MEQ/L (3.5-5.1); TOTAL BILIRUBIN ADULT 1.7 MG/DL (0.2-1.0)
[2017-05-30] MEDS: ONDANSETRON HCL 4 MG/2 ML VIAL IV PUSH PRN (14:17)
[2017-05-30 14:19] LABS: BANDS 8 % (0-6); CORRECTED NUCLEATED RBC 2 /100 WBC (0-0); EOSINOPHILS 4 % (0-4); NEUTROPHIL # MANUAL DIFF 8.4 TH/MM3 (1.8-7.7); POLYS (SEG NEUTROPHILS) 83 % (16-70); WBC DIFF SAMPLE 100
[2017-05-30 14:20] LABS: PLATELET ESTIMATE SMEAR LOW (NORMAL); PLATELET MORPHOLOGY ENLARGED (NORMAL); SCAN/DIFF FINAL DIFF MANUAL
[2017-05-30 14:22] LABS: POLYCHROMASIA 2.2 % (0.0-1.9)
[2017-05-30] MEDS ORDERED: METOPROLOL TARTRATE 25 MG TAB PO ONE (17:00)
[2017-05-30] MEDS ORDERED: MELATONIN 5 MG TAB PO PRN ×2 (17:15→21:00)
[2017-05-30] MEDS: ACETAMINOPHEN/HYDROcodone 325 MG/10 MG TAB PO PRN (17:18)
[2017-05-30] MEDS ORDERED: cloNIDine HCL 0.1 MG/24 HR PATCH T-DERMAL SCH (18:00)
[2017-05-30] MEDS ORDERED: METOPROLOL TARTRATE 25 MG TAB PO SCH (21:00)
[2017-05-30] MEDS: CALCIUM CARBONATE 500 MG CHEWABLE TAB PO PRN (22:39)
[2017-05-31] VITALS (11 sets, daily range): BP systolic 140–191; BP diastolic 79–95; PULSE 100–120; RESP 16–24; TEMP 97.8–101.3; O2SAT 92–94
[2017-05-31] MEDS: ENALAPRILAT 1.25 MG/ML VIAL IV PUSH PRN ×2 (00:41→10:16)
[2017-05-31] MEDS ORDERED: METOCLOPRAMIDE HCL 10 MG/2 ML VIAL IV SCH (02:00)
[2017-05-31] MEDS ORDERED: LACTATED RINGER'S 1000 ML INJ 1,000 ML IV SCH (02:00)
--- NOTE | 2017-05-31 02:53 | RADRPT ---
EXAM DATE/TIME: 05/31/2017 03:07 [facility] COMPARISON: CHEST SINGLE AP, May 29, 2017, 6:00. INDICATIONS : Follow up trauma. MEDICAL HISTORY : None. SURGICAL HISTORY : Lumbar fusion. ORIF pubic symphisis. ENCOUNTER: Subsequent ACUITY: 4 - 6 days PAIN SCORE: Non-responsive. LOCATION: Bilateral chest FINDINGS: Patient has been extubated. Nasogastric tube and left subclavian lines have been removed. Mild atelectasis and very small effusion seen of both lung bases, not significantly changed. No pneum othorax. Heart size stable, within normal limits. CONCLUSION: 1. No significant change mild bibasilar atelectasis/small effusions. 2. Interim extubation and nasogastric tube/left subclavian line removal. Juan J Sullivan MD on May 31, 2017 at 2:51 Board Certified Radiologist. This report was verified electronically.
--- NOTE | 2017-05-31 02:57 | RADRPT ---
EXAM DATE/TIME: 05/31/2017 03:11 [facility] COMPARISON: No previous studies available for comparison. INDICATIONS : Vomiting. MEDICAL HISTORY : None. SURGICAL HISTORY : Lumbar fusion. ORIF pubic symphisis. ENCOUNTER: Initial ACUITY: 1 day PAIN SCORE: Non-responsive. LOCATION: abdomen FINDINGS: Upper limits of normal caliber stomach, small and large bowel. No abrupt caliber changes are seen. No free air. Patient has had surgery of the pelvis and spine. CONCLUSION: Radiographically features are most typical of a mild, diffuse adynamic ileus. Nonobstructive pattern. Juan J Sullivan MD on May 31, 2017 at 2:54 Board Certified Radiologist. This report was verified electronically.
[2017-05-31] MEDS: LACTATED RINGER'S 1000 ML INJ 1,000 ML IV SCH ×3 (04:24→20:18)
[2017-05-31] MEDS: METHOCARBAMOL 500 MG TAB PO SCH ×3 (05:20→20:17)
[2017-05-31] MEDS: ACETAMINOPHEN/HYDROcodone 325 MG/10 MG TAB PO PRN ×2 (05:20→10:18)
[2017-05-31] MEDS: ONDANSETRON HCL 4 MG/2 ML VIAL IV PUSH PRN ×2 (05:21)
[2017-05-31 06:26] LABS: AUTOMATED NEUTROPHIL # 7.9 TH/MM3 (1.8-7.7); BASOPHIL % 0.3 % (0.0-2.0); EOSINOPHIL % 0.3 % (0.0-4.0); HEMATOCRIT 32.7 % (39.0-51.0); LYMPH % 5.9 % (9.0-44.0); LYMPHOCYTE # 0.6 TH/MM3 (1.0-4.8); MEAN CELL VOLUME 85.6 FL (80.0-100.0); MEAN CORPUSCULAR HEMOGLOBIN 29.2 PG (27.0-34.0); MEAN CORPUSCULAR HGB CONC 34.1 % (32.0-36.0); MONO % 8.8 % (0.0-8.0); NEUT % 84.7 % (16.0-70.0); PLATELET COUNT 186 TH/MM3 (150-450); RED BLOOD COUNT 3.82 MIL/MM3 (4.50-5.90); RED CELL DISTRIBUTION WIDTH 15.5 % (11.6-17.2); WHITE BLOOD COUNT 9.3 TH/MM3 (4.0-11.0)
[2017-05-31 06:30] LABS: HEMO FLAGS AUTO DIFF
--- NOTE | 2017-05-31 06:38 | PD.ORT.PN ---
Subjective Subjective Remarks POD 3 s/p ORIF pubic symphysis s/p right SI joint widening awake. alert in bed. nurse reports patient has ileus and refusing NG tube Objective Vitals Vital Signs Date Time Temp Pulse Resp B/P (MAP) Pulse Ox O2 Delivery O2 Flow Rate FiO2 05/31/17 05:55 100.7 172/88 (116) 05/31/17 05:10 101.3 116 23 191/93 (125) 94 05/31/17 00:35 99.1 106 21 189/87 (121) 93 05/30/17 21:20 94 Nasal Cannula 4.00 05/30/17 20:00 98.2 101 17 151/79 (103) 97 05/30/17 16:00 98.0 97 20 155/74 (101) 94 05/30/17 13:22 98 Nasal Cannula 5.00 05/30/17 13:22 113 05/30/17 13:20 96 Nasal Cannula 4.00 05/30/17 11:50 Nasal Cannula 5.00 05/30/17 11:50 99.6 115 24 188/83 (118) 96 05/30/17 10:00 100 05/30/17 08:00 99.5 101 18 154/73 (100) 96 05/30/17 08:00 98 05/30/17 07:00 95 Nasal Cannula 5.00 I/O 05/30/17 05/30/17 05/30/17 05/31/17 05/31/17 05/31/17 07:00 15:00 23:00 07:00 15:00 23:00 Intake Total 2500 ml 480 ml 240 ml 1240 ml Output Total 4305 ml 700 ml 1900 ml 1530 ml Balance -1805 ml -220 ml -1660 ml -290 ml Intake Oral 2400 ml 480 ml 240 ml 240 ml IV Total 100 ml 1000 ml Output Urine Total 4275 ml 700 ml 1900 ml 950 ml Stool Total 0 ml Emesis 550 ml Drainage Total 30 ml 0 ml 30 ml # Bowel Movements 0 Result Diagram: 05/31/17 0611 05/30/17 1114 Imaging Last 24 hours Impressions Chest X-Ray 05/27/17 0600 Signed Impressions: Service Date/Time: Saturday, May 27, 2017 04:48 - CONCLUSION: 1. Interstitial edema. 2. Tiny pleural effusions. Mikey iMles MD Objective Remarks Pelvis: +cap refill bilaterally. nvi. dressings clean and dry. intact. Assessment & Plan Assessment and Plan 1) Pubic symphysis disruption with right SI joint widening s/p ORIF - POD 3 -WBAT LLE for transfers only -NWB otherwise -daily dressing changes -CM for rehab placement -ortho surgeries complete Ashish Singleton May 31, 2017 06:38
[2017-05-31] MEDS ORDERED: HYDR-3583 PO (06:40)
[2017-05-31] MEDS ORDERED: WHEEMIS3 (06:40)
[2017-05-31] MEDS ORDERED: XARE10TA PO (06:40)
[2017-05-31] MEDS ORDERED: MAGNESIUM CITRATE SOLN 300 ML BTL PO ONE (06:45)
[2017-05-31 06:46] LABS: ANION GAP 9 MEQ/L (5-15); AST (GOT) 116 U/L (15-37); BICARBONATE 25.5 MEQ/L (21.0-32.0); BLOOD UREA NITROGEN 15 MG/DL (7-18); CHLORIDE 101 MEQ/L (98-107); GLOMERULAR FILTRATION RATE 101 ML/MIN (>89); POTASSIUM 3.7 MEQ/L (3.5-5.1); SODIUM (NA) 135 MEQ/L (136-145)
[2017-05-31 06:47] LABS: ALT (GPT) 58 U/L (12-78)
[2017-05-31 06:49] LABS: ALKALINE PHOSPHATASE 96 U/L (45-117); TOTAL BILIRUBIN ADULT 1.9 MG/DL (0.2-1.0)
[2017-05-31 08:12] LABS: BANDS 14 % (0-6); BASOPHILS 1 % (0-2); CORRECTED NUCLEATED RBC 3 /100 WBC (0-0); EOSINOPHILS 1 % (0-4); MYELOCYTES 1 % (0-0); NEUTROPHIL # MANUAL DIFF 8.8 TH/MM3 (1.8-7.7); PLATELET ESTIMATE SMEAR NORMAL (NORMAL); PLATELET MORPHOLOGY ENLARGED (NORMAL); POLYCHROMASIA 2.4 % (0.0-1.9); POLYS (SEG NEUTROPHILS) 80 % (16-70); SCAN/DIFF FINAL DIFF MANUAL; WBC DIFF SAMPLE 100
[2017-05-31 08:13] LABS: TOXIC GRANULATION 2+ (NORMAL)
[2017-05-31] MEDS: LACTULOSE SYRUP 20 GM/30 ML CUP PO SCH (09:00)
[2017-05-31] MEDS: DOCUSATE SODIUM 50 MG/SENNA 8.6 MG TAB PO SCH ×2 (09:00→20:17)
[2017-05-31] MEDS: BISACODYL 10 MG SUPP RECTAL SCH (09:00)
[2017-05-31] MEDS: POLYETHYLENE GLYCOL 17 GM PKG PO SCH (09:00)
[2017-05-31] MEDS: METOPROLOL TARTRATE 25 MG TAB PO SCH ×2 (10:16→20:17)
[2017-05-31] MEDS: LISINOPRIL 20 MG TAB PO SCH (10:16)
[2017-05-31] MEDS: ENOXAPARIN SODIUM 40 MG/0.4 ML SYRINGE SQ SCH (10:18)
[2017-05-31] MEDS: FAMOTIDINE 20 MG TAB PO SCH ×2 (10:18→20:17)
[2017-05-31] MEDS: SODIUM CHLORIDE 0.9% FLUSH 10 ML FLUSH IV FLUSH SCH ×2 (10:19→20:17)
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
[2017-05-31] MEDS ORDERED: HALOPERIDOL LACTATE 5 MG/ML AMP IV PRN (14:00)
[2017-05-31] MEDS ORDERED: MORPHINE SULFATE 2 MG/ML INJ IM PRN (14:00)
[2017-05-31] MEDS: ACETAMINOPHEN 1000 MG/100 ML 100 ML IV PRN (16:47)
[2017-05-31] MEDS: QUEtiapine FUMARATE 25 MG TAB PO SCH (20:17)
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
[2017-06-01] VITALS (8 sets, daily range): BP systolic 165–187; BP diastolic 81–97; PULSE 97–120; RESP 17–21; TEMP 95.8–99.3; O2SAT 92–95
[2017-06-01] MEDS: ACETAMINOPHEN 1000 MG/100 ML 100 ML IV PRN (01:02)
[2017-06-01] MEDS: METHOCARBAMOL 500 MG TAB PO SCH ×3 (04:49→20:47)
[2017-06-01] MEDS: ENALAPRILAT 1.25 MG/ML VIAL IV PUSH PRN (04:50)
--- NOTE | 2017-06-01 06:50 | PD.ORT.PN ---
Subjective Subjective Remarks POD 4 s/p ORIF pubic symphysis s/p right SI joint widening awake. alert in bed. ileus improving. got NG tube placed yesterday Objective Vitals Vital Signs Date Time Temp Pulse Resp B/P (MAP) Pulse Ox O2 Delivery O2 Flow Rate FiO2 06/01/17 04:30 98.8 99 19 174/87 (116) 95 06/01/17 00:00 97.1 97 17 173/81 (111) 93 05/31/17 20:58 93 Nasal Cannula 4.00 05/31/17 20:00 97.8 100 16 153/79 (103) 94 05/31/17 20:00 105 05/31/17 16:00 99.2 105 24 165/84 (111) 93 05/31/17 12:50 140/84 (102) 05/31/17 12:16 92 Nasal Cannula 4.00 05/31/17 12:00 98.3 101 20 158/83 (108) 93 05/31/17 08:00 100.3 119 20 173/95 (121) 92 05/31/17 07:30 Room Air 05/31/17 07:30 120 I/O 05/31/17 05/31/17 05/31/17 06/01/17 06/01/17 06/01/17 07:00 15:00 23:00 07:00 15:00 23:00 Intake Total 1240 ml 400 ml 700 ml 884 ml Output Total 1530 ml 2115 ml 1810 ml 670 ml Balance -290 ml -1715 ml -1110 ml 214 ml Intake Oral 240 ml 0 ml IV Total 1000 ml 400 ml 700 ml 884 ml Output Urine Total 950 ml 1450 ml 850 ml Gastric Drainage Total 650 ml 950 ml 650 ml Emesis 550 ml Drainage Total 30 ml 15 ml 10 ml 20 ml # Bowel Movements 0 Result Diagram: 05/31/1761005/31/17610 Imaging Last 24 hours Impressions Chest X-Ray 05/27/17599 Signed Impressions: Service Date/Time: Saturday, May 27, 2017 04:48 - CONCLUSION: 1. Interstitial edema. 2. Tiny pleural effusions. Mikey Miles MD Objective Remarks Pelvis: +cap refill bilaterally. nvi. dressings clean and dry. intact. Assessment & Plan Assessment and Plan 1) Pubic symphysis disruption with right SI joint widening s/p ORIF - POD 4 -WBAT LLE for transfers only -NWB otherwise -daily dressing changes -DC drain today -CM for rehab placement -ortho cleared for DC to SNF -ortho surgeries complete -f/u with [facility] or [facility] in 2 weeks -Scripts on chart Ashish Singleton Jun 01, 2017 06:50
[2017-06-01] MEDS ORDERED: cloNIDine HCL 0.2 MG/24 HR PATCH T-DERMAL SCH (07:15)
[2017-06-01 07:31] LABS: AUTOMATED NEUTROPHIL # 7.3 TH/MM3 (1.8-7.7); BASOPHIL % 0.4 % (0.0-2.0); EOSINOPHIL # 0.2 TH/MM3 (0-0.4); EOSINOPHIL % 2.2 % (0.0-4.0); HEMATOCRIT 29.2 % (39.0-51.0); HEMO FLAGS DIFF FINAL; LYMPHOCYTE # 0.8 TH/MM3 (1.0-4.8); MEAN CELL VOLUME 86.8 FL (80.0-100.0); MEAN CORPUSCULAR HEMOGLOBIN 29.1 PG (27.0-34.0); MEAN CORPUSCULAR HGB CONC 33.6 % (32.0-36.0); NEUT % 78.4 % (16.0-70.0); PLATELET COUNT 230 TH/MM3 (150-450); RED BLOOD COUNT 3.36 MIL/MM3 (4.50-5.90); RED CELL DISTRIBUTION WIDTH 15.3 % (11.6-17.2); WHITE BLOOD COUNT 9.4 TH/MM3 (4.0-11.0)
[2017-06-01 08:06] LABS: BICARBONATE 26.6 MEQ/L (21.0-32.0); CALCIUM-PROTEIN CORRECTED 8.5 MG/DL (8.5-10.1); POTASSIUM 3.3 MEQ/L (3.5-5.1); TOTAL BILIRUBIN ADULT 2.4 MG/DL (0.2-1.0)
[2017-06-01] MEDS: LACTULOSE SYRUP 20 GM/30 ML CUP PO SCH (08:12)
[2017-06-01] MEDS: POLYETHYLENE GLYCOL 17 GM PKG PO SCH (08:12)
[2017-06-01] MEDS: ENOXAPARIN SODIUM 40 MG/0.4 ML SYRINGE SQ SCH (08:12)
[2017-06-01] MEDS: BISACODYL 10 MG SUPP RECTAL SCH (08:13)
[2017-06-01] MEDS: FAMOTIDINE 20 MG TAB PO SCH ×2 (08:13→20:47)
[2017-06-01] MEDS: DOCUSATE SODIUM 50 MG/SENNA 8.6 MG TAB PO SCH ×2 (08:13→20:48)
[2017-06-01] MEDS: LISINOPRIL 20 MG TAB PO SCH (08:13)
[2017-06-01] MEDS: METOPROLOL TARTRATE 25 MG TAB PO SCH ×2 (09:00→20:47)
[2017-06-01] MEDS ORDERED: POTASSIUM CHLOR 20 MEQ PREMIX 100 ML IV ONE (09:00)
[2017-06-01] MEDS ORDERED: POTASSIUM CHLORIDE 25 MEQ EFFERVESCENT TAB PO ONE (09:00)
[2017-06-01] MEDS ORDERED: POLY17S PO (09:24)
[2017-06-01] MEDS ORDERED: ENOX40P SQ (09:24)
[2017-06-01] MEDS ORDERED: METH500T3 PO (09:24)
[2017-06-01] MEDS ORDERED: MAGN400S PO (09:24)
[2017-06-01] MEDS ORDERED: GNP8.6TA PO (09:24)
[2017-06-01] MEDS ORDERED: FAMO20TA2 PO (09:24)
[2017-06-01] MEDS ORDERED: SENN1TAB PO (09:24)
[2017-06-01] MEDS: fentaNYL 50 MCG/HR PATCH T-DERMAL SCH (09:39)
[2017-06-01] MEDS ORDERED: REMOVE OLD DURAGESIC (FENTANYL) PATCH T-DERMAL SCH (11:00)
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
[2017-06-01] MEDS ORDERED: ACETAMINOPHEN/HYDROcodone 325 MG/5 MG TAB PO PRN (15:15)
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
[2017-06-01] MEDS: TAMSULOSIN HCL 0.4 MG CAP PO SCH (17:13)
[2017-06-01] MEDS: CALCIUM CARBONATE 500 MG CHEWABLE TAB PO PRN (17:16)
[2017-06-01] MEDS: QUEtiapine FUMARATE 25 MG TAB PO SCH (20:47)
[2017-06-01] MEDS: ACETAMINOPHEN/HYDROcodone 325 MG/7.5 MG TAB PO PRN (20:47)
[2017-06-01] MEDS: SODIUM CHLORIDE 0.9% FLUSH 10 ML FLUSH IV FLUSH SCH (20:48)
[2017-06-02] VITALS (9 sets, daily range): BP systolic 149–170; BP diastolic 50–84; PULSE 93–109; RESP 19–22; TEMP 97.4–101.3; O2SAT 92–99
[2017-06-02] MEDS: LACTATED RINGER'S 1000 ML INJ 1,000 ML IV SCH ×2 (03:05→13:32)
[2017-06-02 05:28] LABS: AUTOMATED NEUTROPHIL # 9.3 TH/MM3 (1.8-7.7); BASOPHIL % 0.2 % (0.0-2.0); EOSINOPHIL # 0.1 TH/MM3 (0-0.4); EOSINOPHIL % 1.1 % (0.0-4.0); HEMATOCRIT 31.4 % (39.0-51.0); HEMO FLAGS DIFF FINAL; LYMPH % 8.1 % (9.0-44.0); LYMPHOCYTE # 0.9 TH/MM3 (1.0-4.8); MEAN CELL VOLUME 87.8 FL (80.0-100.0); MEAN CORPUSCULAR HGB CONC 33.1 % (32.0-36.0); MONO % 7.7 % (0.0-8.0); NEUT % 82.9 % (16.0-70.0); PLATELET COUNT 319 TH/MM3 (150-450); RED BLOOD COUNT 3.57 MIL/MM3 (4.50-5.90); RED CELL DISTRIBUTION WIDTH 15.7 % (11.6-17.2); WHITE BLOOD COUNT 11.2 TH/MM3 (4.0-11.0)
[2017-06-02 05:55] LABS: BICARBONATE 23.7 MEQ/L (21.0-32.0); MAGNESIUM 2.3 MG/DL (1.5-2.5); POTASSIUM 3.6 MEQ/L (3.5-5.1)
[2017-06-02] MEDS: METHOCARBAMOL 500 MG TAB PO SCH ×3 (06:06→20:19)
--- NOTE | 2017-06-02 06:44 | PD.ORT.PN ---
Subjective Subjective Remarks stable Objective Vitals Vital Signs Date Time Temp Pulse Resp B/P (MAP) Pulse Ox O2 Delivery O2 Flow Rate FiO2 06/02/17 04:00 98.6 101 20 150/80 (103) 92 06/02/17 00:00 97.4 104 22 166/83 (110) 93 06/01/17 23:15 97 Nasal Cannula 2.00 06/01/17 20:59 99.3 120 21 187/97 (127) 92 06/01/17 20:14 111 06/01/17 16:00 98.1 98 18 165/81 (109) 94 06/01/17 12:00 98.5 103 18 177/89 (118) 92 06/01/17 08:00 95.8 100 19 185/90 (121) 93 06/01/17 07:20 102 I/O 06/01/17 06/01/17 06/01/17 06/02/17 06/02/17 06/02/17 07:00 15:00 23:00 07:00 15:00 23:00 Intake Total 884 ml 0 ml 1000 ml Output Total 1370 ml 2400 ml 410 ml 1000 ml Balance -486 ml -2400 ml -410 ml 0 ml Intake Oral 0 ml 0 ml IV Total 884 ml 1000 ml Output Urine Total 700 ml 2400 ml 400 ml 1000 ml Gastric Drainage Total 650 ml Drainage Total 20 ml 10 ml # Bowel Movements 3 2 0 Result Diagram: 06/02/17 0507 06/02/17 0507 Imaging Last 24 hours Impressions Chest X-Ray 05/27/17 0600 Signed Impressions: Service Date/Time: Saturday, May 27, 2017 04:48 - CONCLUSION: 1. Interstitial edema. 2. Tiny pleural effusions. Mikey Miles MD Objective Remarks Pelvis: +cap refill bilaterally. nvi. dressings clean and dry. intact. Abdominal binder in place. Adjusted and brought down over right portion of incision. Has an underlying hernia inferior and right to the pubic symphysis incision Assessment & Plan Assessment and Plan 1) Pubic symphysis disruption with right SI joint widening s/p ORIF - POD 5 -WBAT LLE for transfers only -Toe-touch weight-bearing right lower extremity -daily dressing changes -CM for rehab placement -ortho cleared for DC to SNF -ortho surgeries complete -f/u with [facility] or [facility] in 2 weeks -Scripts on chart Chava Yanes Jr. Jun 02, 2017 06:44
[2017-06-02] MEDS: RESP: ALBUTEROL 2.5 MG/3 ML NEB (PRN) INH ×4 (08:25→20:35)
[2017-06-02] MEDS: ACETAMINOPHEN 1000 MG/100 ML 100 ML IV PRN ×2 (08:30→16:04)
[2017-06-02] MEDS: SODIUM CHLORIDE 0.9% FLUSH 10 ML FLUSH IV FLUSH SCH ×2 (08:33→20:19)
[2017-06-02] MEDS: TAMSULOSIN HCL 0.4 MG CAP PO SCH (08:33)
[2017-06-02] MEDS: ENOXAPARIN SODIUM 40 MG/0.4 ML SYRINGE SQ SCH (08:33)
[2017-06-02] MEDS: BISACODYL 10 MG SUPP RECTAL SCH (08:33)
[2017-06-02] MEDS: LACTULOSE SYRUP 20 GM/30 ML CUP PO SCH (08:33)
[2017-06-02] MEDS: METOPROLOL TARTRATE 25 MG TAB PO SCH ×2 (08:33→20:19)
[2017-06-02] MEDS: POLYETHYLENE GLYCOL 17 GM PKG PO SCH (08:33)
[2017-06-02] MEDS: LISINOPRIL 20 MG TAB PO SCH (08:33)
[2017-06-02] MEDS: DOCUSATE SODIUM 50 MG/SENNA 8.6 MG TAB PO SCH ×2 (08:33→20:19)
[2017-06-02] MEDS: FAMOTIDINE 20 MG TAB PO SCH ×2 (08:33→20:19)
[2017-06-02] MEDS ORDERED: PHENOL 1.4% SOLN 180 ML BTL OROPHARYNG PRN (12:15)
[2017-06-02] MEDS ORDERED: cloNIDine HCL 0.2 MG/24 HR PATCH T-DERMAL SCH (13:00)
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
[2017-06-02] MEDS: ENALAPRILAT 1.25 MG/ML VIAL IV PUSH PRN (16:05)
[2017-06-02] MEDS: QUEtiapine FUMARATE 25 MG TAB PO SCH (20:19)
[2017-06-02 20:50] LABS: BLOOD, URINE MOD (NEG); COMMENT (UR) CULT NOT INDICATED; CULTURE IF INDICATED CULT NOT INDICATED; GLUCOSE,URINE TRACE mg/dL (NEG); KETONE, URINE NEG (NEG); MUCUS URINE FEW /lpf (OCC); NITRITE,URINE NEG (NEG); URINE COLOR YELLOW (YELLW/STRAW)
[2017-06-03] VITALS (10 sets, daily range): BP systolic 134–162; BP diastolic 64–90; PULSE 92–121; RESP 18–20; TEMP 98–100.8; O2SAT 94–96
[2017-06-03] MEDS: MORPHINE SULFATE 2 MG/ML INJ IV PRN ×5 (00:10→23:58)
[2017-06-03] MEDS: METHOCARBAMOL 500 MG TAB PO SCH ×4 (05:18→21:19)
[2017-06-03] MEDS: LACTATED RINGER'S 1000 ML INJ 1,000 ML IV SCH ×4 (05:18→23:58)
[2017-06-03 05:46] LABS: AUTOMATED NEUTROPHIL # 9.9 TH/MM3 (1.8-7.7); BASOPHIL % 0.3 % (0.0-2.0); EOSINOPHIL # 0.1 TH/MM3 (0-0.4); HEMATOCRIT 30.8 % (39.0-51.0); HEMO FLAGS DIFF FINAL; LYMPH % 8.4 % (9.0-44.0); MEAN CORPUSCULAR HEMOGLOBIN 29.3 PG (27.0-34.0); MEAN CORPUSCULAR HGB CONC 33.6 % (32.0-36.0); MONO % 7.9 % (0.0-8.0); NEUT % 82.4 % (16.0-70.0); PLATELET COUNT 383 TH/MM3 (150-450); RED BLOOD COUNT 3.54 MIL/MM3 (4.50-5.90); RED CELL DISTRIBUTION WIDTH 15.7 % (11.6-17.2)
[2017-06-03 06:18] LABS: BICARBONATE 22.8 MEQ/L (21.0-32.0); CALCIUM-PROTEIN CORRECTED 8.3 MG/DL (8.5-10.1); POTASSIUM 3.7 MEQ/L (3.5-5.1); TOTAL BILIRUBIN ADULT 3.3 MG/DL (0.2-1.0)
--- NOTE | 2017-06-03 07:03 | RADRPT ---
EXAM DATE/TIME: 06/03/2017 06:31 [facility] COMPARISON: CHEST SINGLE AP, June 02, 2017, 15:02. INDICATIONS : Short of breath, chest congestion MEDICAL HISTORY : rib and pelvic fractures SURGICAL HISTORY : ORIF pubic symphysis ENCOUNTER: Subsequent ACUITY: 2 days PAIN SCORE: 9/10 LOCATION: Bilateral chest FINDINGS: Bibasilar opacity continues to indicate the presence of bilateral pleural effusions and underlying ai rspace disease. There is no pneumothorax. Heart and mediastinal structures are stable. Fractured left-sided ribs are again noted. CONCLUSION: Bilateral pleural effusions and basilar airspace disease; unchanged. Fractured left-sided ribs. Timo Cox MD on June 03, 2017 at 6:59 Board Certified Radiologist. This report was verified electronically.
[2017-06-03] MEDS: ENOXAPARIN SODIUM 40 MG/0.4 ML SYRINGE SQ SCH (08:15)
[2017-06-03] MEDS: SODIUM CHLORIDE 0.9% FLUSH 10 ML FLUSH IV FLUSH SCH ×2 (08:16→21:19)
[2017-06-03] MEDS: POLYETHYLENE GLYCOL 17 GM PKG PO SCH (09:00)
[2017-06-03] MEDS: TAMSULOSIN HCL 0.4 MG CAP PO SCH (09:00)
[2017-06-03] MEDS: METOPROLOL TARTRATE 25 MG TAB PO SCH ×2 (09:00→21:11)
[2017-06-03] MEDS: FAMOTIDINE 20 MG TAB PO SCH ×2 (09:00→21:19)
[2017-06-03] MEDS: DOCUSATE SODIUM 50 MG/SENNA 8.6 MG TAB PO SCH ×2 (09:00→21:19)
[2017-06-03] MEDS: BISACODYL 10 MG SUPP RECTAL SCH (09:00)
[2017-06-03] MEDS: LACTULOSE SYRUP 20 GM/30 ML CUP PO SCH (09:00)
[2017-06-03] MEDS: LISINOPRIL 20 MG TAB PO SCH (09:00)
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
--- NOTE | 2017-06-03 12:58 | RADRPT ---
EXAM DATE/TIME: 06/03/2017 12:27 [facility] COMPARISON: CT BRAIN W/O CONTRAST, May 25, 2017, 11:24. INDICATIONS : Altered mental status. RADIATION DOSE: 56.35 CTDIvol (mGy) MEDICAL HISTORY : Hypertension. Cardiovascular disease SURGICAL HISTORY : None. ENCOUNTER: Initial ACUITY: 1 day PAIN SCALE: 0/10 LOCATION: cranial TECHNIQUE: Multiple contiguous axial images were obtained of the head. Using automated exposure control and adjustment of the mA and/or kV according to patient size, radiation dose was kept as low as reasonably achievable to obtain optimal diagnostic quality images. DICOM format image data is av ailable electronically for review and comparison. FINDINGS: CEREBRUM: The ventricles are normal for age. No evidence of midline shift, mass lesion, hemorrha ge or acute infarction. No extra-axial fluid collections are seen. POSTERIOR FOSSA: The cerebellum and brainstem are intact. The 4th ventricle is midline. The cer ebellopontine angle is unremarkable. EXTRACRANIAL: The visualized portion of the orbits is intact. SKULL: The calvaria is intact. No evidence of skull fracture. CONCLUSION: Negative for acute process. Andreas Rodriguez MD FACR on June 03, 2017 at 12:46 Board Certified Radiologist. This report was verified electronically.
--- NOTE | 2017-06-03 13:10 | RADRPT ---
EXAM DATE/TIME: 06/03/2017 12:33 [facility] COMPARISON: CT LUMBAR SPINE W/O CONTRAST, May 25, 2017, 11:33. INDICATIONS : Post operative lumbar; back pain. RADIATION DOSE: 43.82 CTDIvol (mGy) MEDICAL HISTORY : Cardiovascular disease. Hypertension. SURGICAL HISTORY : Lumbar ENCOUNTER: Initial ACUITY: 1 day PAIN SCALE: 9/10 LOCATION: Bilateral lumbar TECHNIQUE: Volumetric scanning of the lumbar spine was performed. Multiplanar reconstructions in the sagittal, coronal and oblique axial planes were performed. Using automated exposure control and adjustment of the mA and/or kV according to patient size, radiation dose was kept as low as reasonably achievable t o obtain optimal diagnostic quality images. DICOM format image data is available electronically for review and comparison. FINDINGS: Patient is status post transpedicular fixation from L1-L3 with partial collapse of L2. The hardware is in good position. There is persistent posterior listhesis of bone fragments at L2 wi th large laminectomy defect evident. L3-4: Disc neural foramina are unremarkable. L4-5: Disc and neural foramen are unremarkable. L5-S1: Mild disc bulging present eccentric to the left without significant spinal stenosis. CONCLUSION: Satisfactory postoperative appearance of the spine. Minimal disc disease L5-S1 without significant neural compression. There is no hematoma evident. Andreas Rodriguez MD FACR on June 03, 2017 at 13:05 Board Certified Radiologist. This report was verified electronically.
[2017-06-03] MEDS: ENALAPRILAT 1.25 MG/ML VIAL IV PUSH PRN (13:41)
[2017-06-03] MEDS: ACETAMINOPHEN 1000 MG/100 ML 100 ML IV PRN ×2 (16:09→16:18)
[2017-06-03] MEDS ORDERED: CHLORPROMAZINE IV ONE (20:00)
[2017-06-03] MEDS ORDERED: SODIUM CHLORIDE 0.9% IV ONE (20:00)
[2017-06-03] MEDS: QUEtiapine FUMARATE 25 MG TAB PO SCH (21:11)
[2017-06-04] VITALS (7 sets, daily range): BP systolic 125–168; BP diastolic 60–79; PULSE 106–113; RESP 18–20; TEMP 98.7–99.9; O2SAT 95–98
[2017-06-04] MEDS: METHOCARBAMOL 500 MG TAB PO SCH ×3 (04:18→20:59)
[2017-06-04 06:04] LABS: ANION GAP 10 MEQ/L (5-15); AST (GOT) 80 U/L (15-37); BICARBONATE 21.5 MEQ/L (21.0-32.0); BLOOD UREA NITROGEN 21 MG/DL (7-18); CHLORIDE 109 MEQ/L (98-107); GLOMERULAR FILTRATION RATE 104 ML/MIN (>89); POTASSIUM 3.8 MEQ/L (3.5-5.1); SODIUM (NA) 140 MEQ/L (136-145)
[2017-06-04 06:05] LABS: ALT (GPT) 69 U/L (12-78)
[2017-06-04 06:07] LABS: ALKALINE PHOSPHATASE 108 U/L (45-117); TOTAL BILIRUBIN ADULT 2.9 MG/DL (0.2-1.0)
[2017-06-04 06:48] LABS: AUTOMATED NEUTROPHIL # 9.7 TH/MM3 (1.8-7.7); BASOPHIL % 0.2 % (0.0-2.0); EOSINOPHIL # 0.3 TH/MM3 (0-0.4); EOSINOPHIL % 2.2 % (0.0-4.0); HEMATOCRIT 33.2 % (39.0-51.0); LYMPH % 8.2 % (9.0-44.0); MEAN CELL VOLUME 87.5 FL (80.0-100.0); MEAN CORPUSCULAR HEMOGLOBIN 28.7 PG (27.0-34.0); MEAN CORPUSCULAR HGB CONC 32.8 % (32.0-36.0); MONO % 7.6 % (0.0-8.0); NEUT % 81.8 % (16.0-70.0); PLATELET COUNT 451 TH/MM3 (150-450); RED CELL DISTRIBUTION WIDTH 15.9 % (11.6-17.2); WHITE BLOOD COUNT 11.9 TH/MM3 (4.0-11.0)
[2017-06-04 06:49] LABS: HEMO FLAGS AUTO DIFF
[2017-06-04] MEDS: SODIUM CHLORIDE 0.9% FLUSH 10 ML FLUSH IV FLUSH SCH ×2 (09:00→21:30)
[2017-06-04] MEDS: BISACODYL 10 MG SUPP RECTAL SCH (09:00)
[2017-06-04] MEDS: LACTATED RINGER'S 1000 ML INJ 1,000 ML IV SCH (09:06)
[2017-06-04] MEDS: ENOXAPARIN SODIUM 40 MG/0.4 ML SYRINGE SQ SCH (09:08)
[2017-06-04] MEDS: FAMOTIDINE 20 MG TAB PO SCH ×2 (09:08→21:30)
[2017-06-04] MEDS: METOPROLOL TARTRATE 25 MG TAB PO SCH ×2 (09:08→21:29)
[2017-06-04] MEDS: LACTULOSE SYRUP 20 GM/30 ML CUP PO SCH (09:08)
[2017-06-04] MEDS: TAMSULOSIN HCL 0.4 MG CAP PO SCH (09:08)
[2017-06-04] MEDS: LISINOPRIL 20 MG TAB PO SCH (09:08)
[2017-06-04] MEDS: DOCUSATE SODIUM 50 MG/SENNA 8.6 MG TAB PO SCH ×2 (09:09→21:30)
[2017-06-04] MEDS: POLYETHYLENE GLYCOL 17 GM PKG PO SCH (09:09)
[2017-06-04 09:12] LABS: BANDS 6 % (0-6); EOSINOPHILS 1 % (0-4); NEUTROPHIL # MANUAL DIFF 9.5 TH/MM3 (1.8-7.7); PLASMA CELLS 1 % (0-0); PLATELET ESTIMATE SMEAR HIGH (NORMAL); PLATELET MORPHOLOGY NORMAL (NORMAL); POLYS (SEG NEUTROPHILS) 74 % (16-70); SCAN/DIFF FINAL DIFF MANUAL; WBC DIFF SAMPLE 100
[2017-06-04 09:13] LABS: ACANTHOCYTES OCC (NORMAL)
[2017-06-04 09:14] LABS: TOXIC GRANULATION 1+ (NORMAL); TOXIC VACUOLATION PRESENT (NONE SEEN)
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
[2017-06-04] MEDS: LEVOFLOXACIN 500 MG TAB PO SCH (13:02)
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
[2017-06-04] MEDS: ACETAMINOPHEN/HYDROcodone 325 MG/7.5 MG TAB PO PRN (20:57)
[2017-06-04] MEDS: QUEtiapine FUMARATE 25 MG TAB PO SCH (21:30)
[2017-06-05] MEDS: LACTATED RINGER'S 1000 ML INJ 1,000 ML IV SCH ×2 (00:03→09:04)
[2017-06-05 01:30] VITALS: BP 128/58; PULSE 87; RESP 18; TEMP 97.8; O2SAT 97
[2017-06-05] MEDS: METHOCARBAMOL 500 MG TAB PO SCH (04:58)
[2017-06-05 05:00] VITALS: BP 151/77; PULSE 96; RESP 20; TEMP 98; O2SAT 97
[2017-06-05 08:00] VITALS: BP 162/89; PULSE 99; RESP 18; TEMP 98.5; O2SAT 96
[2017-06-05] MEDS: BISACODYL 10 MG SUPP RECTAL SCH (08:55)
[2017-06-05] MEDS: LACTULOSE SYRUP 20 GM/30 ML CUP PO SCH (08:55)
[2017-06-05] MEDS: DOCUSATE SODIUM 50 MG/SENNA 8.6 MG TAB PO SCH (08:56)
[2017-06-05] MEDS: POLYETHYLENE GLYCOL 17 GM PKG PO SCH (08:57)
[2017-06-05] MEDS: SODIUM CHLORIDE 0.9% FLUSH 10 ML FLUSH IV FLUSH SCH (09:03)
[2017-06-05] MEDS: ENOXAPARIN SODIUM 40 MG/0.4 ML SYRINGE SQ SCH (09:03)
[2017-06-05] MEDS: METOPROLOL TARTRATE 25 MG TAB PO SCH (09:03)
[2017-06-05] MEDS: LISINOPRIL 20 MG TAB PO SCH (09:03)
[2017-06-05] MEDS: LEVOFLOXACIN 500 MG TAB PO SCH (09:03)
[2017-06-05] MEDS: TAMSULOSIN HCL 0.4 MG CAP PO SCH (09:03)
[2017-06-05] MEDS: FAMOTIDINE 20 MG TAB PO SCH (09:03)
[2017-06-05] MEDS ORDERED: LEVA500T20 PO (10:39)
[2017-06-05] MEDS ORDERED: CLON.2T T-DERMAL (10:40)
[2017-06-05 11:26] VITALS: O2SAT 95
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
[2017-06-05] MEDS ORDERED: QUET1TAB7 PO (12:06)
[2017-06-05] MEDS ORDERED: TAMS5CAP PO (12:06)
[2017-06-05] MEDS ORDERED: LISI-515 PO (12:06)
[2017-06-05] MEDS ORDERED: METO25TA3 PO (12:06)
[2017-06-09] MEDS ORDERED: REMOVE OLD CATAPRES (CLONIDINE) PATCH T-DERMAL SCH (13:00)
== END 2017-06-05 13:24 | DRG 957 ==
LOC: NEPI 10:48 → EDBD 11:29 → NEDA 11:29 → N03B 11:54 → N06A 05-30 11:40
PROVIDERS: ADMIT Surgery; ATTEND Surgery
PROC: 30233N1 Transfusion of Nonautologous Red Blood Cells into Peripheral Vein, Percutaneous Approach (ICD-10-PCS; 2017-05-25)
PROC: 05H633Z Insertion of Infusion Device into Left Subclavian Vein, Percutaneous Approach (ICD-10-PCS; 2017-05-25)
PROC: 0QS004Z Reposition Lumbar Vertebra with Internal Fixation Device, Open Approach (ICD-10-PCS; 2017-05-28)
PROC: 0QS304Z Reposition Left Pelvic Bone with Internal Fixation Device, Open Approach (ICD-10-PCS; 2017-05-28)
PROC: 01NB0ZZ Release Lumbar Nerve, Open Approach (ICD-10-PCS; 2017-05-28)
PROC: 0SG10J1 Fusion of 2 or more Lumbar Vertebral Joints with Synthetic Substitute, Posterior Approach, Posterior Column, Open Approach (ICD-10-PCS; 2017-05-28)
PROC: 30233K1 Transfusion of Nonautologous Frozen Plasma into Peripheral Vein, Percutaneous Approach (ICD-10-PCS; 2017-05-28)
PROC: 30233R1 Transfusion of Nonautologous Platelets into Peripheral Vein, Percutaneous Approach (ICD-10-PCS; 2017-05-28)
PROC: 0QS204Z Reposition Right Pelvic Bone with Internal Fixation Device, Open Approach (ICD-10-PCS; principal; 2017-05-28 08:48)
PROC: 0SG1071 Fusion of 2 or more Lumbar Vertebral Joints with Autologous Tissue Substitute, Posterior Approach, Posterior Column, Open Approach (ICD-10-PCS; 2017-05-28 08:48)
DX: S33.4XXA Traumatic rupture of symphysis pubis, initial encounter (principal); J96.01 Acute respiratory failure with hypoxia; S27.322A Contusion of lung, bilateral, initial encounter; S37.012A Minor contusion of left kidney, initial encounter; S72.111A Displaced fracture of greater trochanter of right femur, initial encounter for closed fracture; S32.591A Other specified fracture of right pubis, initial encounter for closed fracture; R57.8 Other shock; N17.9 Acute kidney failure, unspecified; S32.019A Unspecified fracture of first lumbar vertebra, initial encounter for closed fracture; D62 Acute posthemorrhagic anemia; S32.049A Unspecified fracture of fourth lumbar vertebra, initial encounter for closed fracture; S22.43XA Multiple fractures of ribs, bilateral, initial encounter for closed fracture; S32.022A Unstable burst fracture of second lumbar vertebra, initial encounter for closed fracture; K56.7 Ileus, unspecified; G96.0 Cerebrospinal fluid leak; S32.059A Unspecified fracture of fifth lumbar vertebra, initial encounter for closed fracture; F05 Delirium due to known physiological condition; S36.892A Contusion of other intra-abdominal organs, initial encounter; S37.022A Major contusion of left kidney, initial encounter; I31.3 Pericardial effusion (noninflammatory); S32.592A Other specified fracture of left pubis, initial encounter for closed fracture; D69.6 Thrombocytopenia, unspecified; E78.5 Hyperlipidemia, unspecified; G47.00 Insomnia, unspecified; I10 Essential (primary) hypertension; I25.10 Atherosclerotic heart disease of native coronary artery without angina pectoris; K21.9 Gastro-esophageal reflux disease without esophagitis; I34.1 Nonrheumatic mitral (valve) prolapse; K76.0 Fatty (change of) liver, not elsewhere classified; R31.9 Hematuria, unspecified; M54.16 Radiculopathy, lumbar region; R13.10 Dysphagia, unspecified; R44.1 Visual hallucinations; S06.0X0A Concussion without loss of consciousness, initial encounter; R40.2412 Glasgow coma scale score 13-15, at arrival to emergency department; R91.1 Solitary pulmonary nodule; S32.129A Unspecified Zone II fracture of sacrum, initial encounter for closed fracture; S32.119A Unspecified Zone I fracture of sacrum, initial encounter for closed fracture; S30.0XXA Contusion of lower back and pelvis, initial encounter; S42.102A Fracture of unspecified part of scapula, left shoulder, initial encounter for closed fracture; V29.9XXA Motorcycle rider (driver) (passenger) injured in unspecified traffic accident, initial encounter; Y92.410 Unspecified street and highway as the place of occurrence of the external cause; Z79.82 Long term (current) use of aspirin; I25.2 Old myocardial infarction; Z87.891 Personal history of nicotine dependence; Z95.820 Peripheral vascular angioplasty status with implants and grafts; Z95.5 Presence of coronary angioplasty implant and graft
CPT/HCPCS: 36430; 36556; 36600; 36620; 70450; 71010; 71260; 72100; 72125; 72128; 72131; 72170; 72190; 72192; 73020; 74000; 74177; 74230; 76000; 76937; 80048; 80053; 81001; 82435; 82565; 82805; 82947; 83605; 83735; 84100; 84132; 84155; 84295; 84520; 85007; 85014; 85018; 85025; 85027; 85384; 85610; 85730; 86850; 86900; 86901; 86920; 86927; 87040; 87070; 87077; 87086; 87186; 87205; 87641; 90471; 90715; 93005; 93306; 94002; 94003; 94150; 94640; 94664; 94667; 94668; 96374; 96375; 99291; G0390; J0131; J0690; J1170; J1580; J1644; J1650; J1940; J2270; J2310; J2370; J2405; J2550; J2765; J3010; J3230; J3370; J3475; J7030; J7050; J7060; J7120; J7613; L0200; L0484; P9016; P9017; P9035; P9045; Q9967